=== PATIENT | female | born 1940 | race Caucasian/White ===

== ENCOUNTER 2016-12-24 15:08 | Observation (INO) ==
--- NOTE | 2016-12-24 15:36 | Emergency Department Note ---
Disposition Clinical Impression: Shortness of breath at rest Chest pain Qualifiers: Chest pain type: unspecified Qualified Code(s): R07.9 - Chest pain, unspecified Disposition: Admitted As Inpatient Condition: Fair Time of Disposition: 19:45 Chest Pain HPI - General Chief Complaint: ED Chest Pain Stated Complaint: Chest pain Time Seen by Provider: 12/24/16 15:10 Source: patient, EMS Limitations: no limitations Vital Signs Reviewed: Yes Nursing Notes Reviewed: Yes - History of Present Illness HPI Narrative: The patient is a 76-year-old female with a past medical history of hypertension , COPD, stroke, and NM who presents via EMS complaining of chest pain and shortness of breath. The patient states that the chest pain is on the left side and started approximately 2 hours ago while at rest and radiates to her back and both shoulders. Patient describes the pain as a 10 out of 10 constant sharp pain with associated right arm numbness. Patient states she took 3 nitros at home each 5 minutes apart with no chest pain relief. Patient admits the ride to the hospital may her chest pain worse and nothing makes it better. Patient states that her SOB started last night. She is on 2L of oxygen at home and oxygen did not improve her breathing. She states that the SOB occurs at rest and is worse with exertion. She denies any history of DVTs or Pulmonary embolism. Patient states that she just seen her primary care physician on Wednesday and was diagnosed with "fluid on her lungs." She admits headaches but denies any vision changes, fever, abdominal pain, changes in her bowel movement , changes in her urination, or any weaknesses. Severity scale (1-10): 10 - Related Data Home Medications Medication Instructions Recorded Confirmed ALPRAZolam [Xanax 1 MG Tablet] 1.5 mg PO BID 11/03/16 12/24/16 Alendronate Sodium [Fosamax] 10 mg PO DAILY 11/03/16 12/24/16 Aspirin Enteric Coated [Aspirin EC] 81 mg PO DAILY 11/03/16 12/24/16 Budesonide/Formoterol 160/4.5 2 puff IH DAILY 11/03/16 12/24/16 [Symbicort 160/4.5] Cholecalciferol (D-3) [Vitamin D] 1,000 unit PO DAILY 11/03/16 12/24/16 Cyanocobalamin (Vitamin B-12) 1,000 mcg PO DAILY 11/03/16 12/24/16 [Vitamin B12] Furosemide [Lasix] 20 mg PO BID 11/03/16 12/24/16 Losartan Potassium [Cozaar] 50 mg PO DAILY 11/03/16 12/24/16 Metoclopramide [Reglan] 10 mg PO DAILY 11/03/16 12/24/16 Multivitamin [Multi-Day Vitamins] 1 tab PO DAILY 11/03/16 12/24/16 Nitroglycerin [Nitrostat] 0.4 mg SL Q5M PRN 11/03/16 12/24/16 OxyCODONE/APAP 5/325 [Percocet 1 tab PO Q6HR PRN 11/03/16 12/24/16 5/325 MG] Oxygen 2 l NS AD 11/03/16 12/24/16 Pantoprazole Sodium [Protonix] 40 mg PO BID 11/03/16 12/24/16 Simvastatin [Zocor] 40 mg PO HS 11/03/16 12/24/16 glipiZIDE [Glucotrol] 5 mg PO QAM 11/03/16 12/24/16 Potassium Chloride [Klor-Con 10] 10 meq PO TID 12/24/16 12/24/16 Psyllium Husk [Daily Fiber] 1.04 gm PO DAILY 12/24/16 12/24/16 Sucralfate [Carafate] 1 gm PO QID 12/24/16 12/24/16 Allergies Allergy/AdvReac Type Severity Reaction Status Date / Time codeine AdvReac Drowsy Verified 11/03/16 07:50 duloxetine [From Cymbalta] AdvReac Nausea Verified 11/03/16 07:50 fish oil AdvReac Nausea Verified 11/03/16 07:50 fluconazole [From Diflucan] AdvReac Hives Verified 11/03/16 07:50 [place]-3 acid Ethyl Esters AdvReac Nausea Verified 11/03/16 07:50 [From [place]] omeprazole AdvReac Nausea Verified 11/03/16 07:50 All systems ED: reviewed and negative except as stated. Review of Systems: As Per HPI Constitutional: Denies: fever, chills, weakness Cardiovascular: Reports: chest pain, dyspnea on exertion. Denies: palpitations Respiratory: Reports: dyspnea. Denies: cough, wheezes Gastrointestinal: Denies: abdominal pain, nausea, vomiting Genitourinary: Denies: dysuria, frequency, hematuria Musculoskeletal: Denies: back pain, neck pain Neurological: Reports: headache, numbness (She admits numbness in her right arm) . Denies: weakness Chest Pain PMH - Past Medical History Medical history: Reports: CHF, COPD, CVA, hypertension, other Surgical history: Reports: hysterectomy, orthopedic, other Psychiatric history: Reports: no psych history - Social History Smoking Status: Former smoker Alcohol use: Reports: none Drug use: Reports: none Physical Exam - General Limitations: no limitations General appearance: alert, in no apparent distress - Eye Eye exam: Present: normal appearance, PERRL, EOMI - Chest Chest inspection: Present: normal inspection, symmetric chest wall rise - Respiratory Respiratory exam: Present: other (Crackles are heard in the left upper and lower lobe. Decreased breath sounds heard on the right side. ). Absent: respiratory distress - Cardiovascular Cardiovascular exam: Present: regular rate, normal rhythm, normal heart sounds. Absent: bradycardia, tachycardia - Abdominal Exam Abdominal exam: Present: soft, Non-Tender. Absent: tenderness, distention, guarding, rebound, rigidity - Extremities Exam Extremities exam: Present: other (Trace pitting edema present on bilateral lower extremities. ) - Back Exam Back exam: Present: normal inspection. Absent: tenderness, CVA tenderness (R), CVA tenderness (L), paraspinal tenderness, vertebral tenderness - Neurological Exam Neurological exam: Present: alert, oriented X3. Absent: motor sensory deficit ( Distal pulses +2/4 bilaterally. Muscle strength 5/5 in upper and lower extremities. Sensation is intact bilaterally. ) Course Vital Signs O2 Sat by Pulse Oximetry 4 12/24/16 15:09 Temperature 97.9 F 12/24/16 15:11 Pulse Rate 67 12/24/16 19:43 Respiratory Rate 18 12/24/16 19:43 Blood Pressure 165/86 12/24/16 19:43 O2 Sat by Pulse Oximetry 98 12/24/16 19:43 Oxygen Delivery Oxygen Delivery Room Air Chest Pain - MDM Narrative Medical decision making narrative: Patient's vitals are stable and she is afebrile. EKG showing normal sinus rhythm with a rate of 88 without acute ischemic change. Labs are pending. SOB appears pleuritic. Dimer is pending. 16:05 - Labs showed HgB at 11.4 which appears to be near her baseline. Creatinine is elevated at 1.51 and dimer is elevated at 560. CTA of chest will be ordered. 16:26- CXR showed right basilar atelectasis or scarring. No other acute cardiopulmonary finding. CTA was ordered. Patient has elevated Creatine so will hydrate patient with 1L of fluids prior to CTA. Patient is reevaluated and states no change in pain. Patient breathing is improved with 2L of oxygen. 18:10- CTA showed no pulmonary embolism, aortic aneurysm, or dissection.There are trace bilateral pleural effusions, with subpleural patchy airspace disease which may represent atelectasis, though bronchiolitis cannot be excluded. No pulmonary consolidation. Reevalulated the patient. She states she is still having chest pain. Will give patient 4mg of morphine and Aspirin. 18:43 - Patient is reevaluated. She has not received morphine yet. HEART score is 4. Plan to admit the patient. Patient states that she does not want to be admitted. 19:38- Patient is still continuing to have chest pain after 4 mg of Morphine is administered. Will order 4mg morphine for her pain. Spoke with Dr. Reynoso and discussed the patient. He agree to admit the patient for NM rule out. - Lab Data Result diagrams: 12/24/16 15:38 12/24/16 15:38 Lab Results 12/24/16 12/24/16 12/24/16 Range/Units 15:38 15:38 15:38 WBC 6.4 (4.3-11.1) K/mcL RBC 3.88 (3.82-4.97) M/mcL Hgb 11.4 L (11.5-15.4) g/dL Hct 34.9 L (35.3-44.9) % MCV 89.9 (83.0-100.0) fL MCH 29.4 (28.0-33.3) pg MCHC 32.7 (31.6-35.5) g/dL RDW 12.7 (11.5-14.5) % Plt Count 136 L (140-400) K/mcL MPV 11.6 (9.4-12.4) fL Immature Gran % 0.2 (0-4) % Seg Neutrophils % 59.7 % Lymphocytes % 29.9 % Monocytes % 7.9 % Eosinophils % 2.0 % Basophils % 0.3 % Neutrophils # 3.8 (1.6-8.9) K/mcL Lymphocytes # 1.9 (0.6-4.6) K/mcL Monocytes # 0.5 (0.0-1.3) K/mcL Eosinophils # 0.1 (0.0-0.6) K/mcL Basophils # 0.0 (0.0-0.2) K/mcL D-Dimer (0-500) ng/mLFEU Sodium 139 (136-145) mEq/L Potassium 3.9 (3.5-4.5) mEq/L Chloride 104 (98-109) mEq/L Carbon Dioxide 26 (19-29) mEq/L BUN 21 H (7-20) mg/dL Creatinine 1.51 H (0.57-1.11) mg/dL Est GFR ( Amer) 40 L (> 60) Est GFR (Non-Af Amer) 33 L (> 60) BUN/Creatinine Ratio 14 (6-26) Glucose 144 H (70-99) mg/dL Calculated Osmolality 294 (280-300) Calcium 9.4 (8.6-10.8) mg/dL Troponin I 0.00 (0-0.03) ng/mL 12/24/16 Range/Units 15:38 WBC (4.3-11.1) K/mcL RBC (3.82-4.97) M/mcL Hgb (11.5-15.4) g/dL Hct (35.3-44.9) % MCV (83.0-100.0) fL MCH (28.0-33.3) pg MCHC (31.6-35.5) g/dL RDW (11.5-14.5) % Plt Count (140-400) K/mcL MPV (9.4-12.4) fL Immature Gran % (0-4) % Seg Neutrophils % % Lymphocytes % % Monocytes % % Eosinophils % % Basophils % % Neutrophils # (1.6-8.9) K/mcL Lymphocytes # (0.6-4.6) K/mcL Monocytes # (0.0-1.3) K/mcL Eosinophils # (0.0-0.6) K/mcL Basophils # (0.0-0.2) K/mcL D-Dimer 560 H (0-500) ng/mLFEU Sodium (136-145) mEq/L Potassium (3.5-4.5) mEq/L Chloride (98-109) mEq/L Carbon Dioxide (19-29) mEq/L BUN (7-20) mg/dL Creatinine (0.57-1.11) mg/dL Est GFR ( Amer) (> 60) Est GFR (Non-Af Amer) (> 60) BUN/Creatinine Ratio (6-26) Glucose (70-99) mg/dL Calculated Osmolality (280-300) Calcium (8.6-10.8) mg/dL Troponin I (0-0.03) ng/mL - Radiology Data Chest X-Ray 12/24/16 15:10 IMPRESSION: Right basilar atelectasis or scarring. No other acute cardiopulmonary findings. D/ / Ania Shah MD / Ania Shah MD Interpreting Provider: Ania Shah MD - EKG Data EKG attestation: Yes I reviewed and interpreted this EKG. EKG results narrative: EKG showed no signs of ischemic changes. EKG shows normal: sinus rhythm Rate: normal Rhythm: NSR [place]/QRS: normal When compared to previous EKG there are: no significant changes Interpretation: no acute changes, normal EKG Heart Score - Score History: Slightly Suspicious EKG: Normal Age: Greater than 65 Risk Factors: Equal/Greater than 3 risk factor or history of atherosclerotic disease Troponin: Less than normal limit HEART Score Total: 4
--- NOTE | 2016-12-24 15:37 | Emergency Department Note ---
START Narrative - START START: I examined this patient and my medical decision-making was reviewed with the [employer]/PA/Advanced Practice Nurse/Resident Physician. I agree with the documented findings, disposition and treatment plan as described except to the extent set forth below. I did see the patient spoke with her and her daughter and she does have chest pain and is exertional and she does have a pleuritic aspect but no radiation. Symptoms have been present for approximately one week. Evaluation is in progress. I did review her EKG showing normal sinus rhythm with a rate of 88 without acute ischemic change. I did see the patient immediately upon arrival and also spoke with the paramedics. [id number]
[2016-12-24 15:49] LABS: Basophils % 0.3 %; Eosinophils # 0.1 K/mcL (0.0-0.6); Hematocrit 34.9 % (35.3-44.9); Hemoglobin 11.4 g/dL (11.5-15.4); Immature Granulocytes % 0.2 % (0-4); Lymphocytes # 1.9 K/mcL (0.6-4.6); Lymphocytes % 29.9 %; Mean Corpuscular HGB Conc 32.7 g/dL (31.6-35.5); Mean Corpuscular Hemoglobin 29.4 pg (28.0-33.3); Mean Corpuscular Volume 89.9 fL (83.0-100.0); Mean Platelet Volume 11.6 fL (9.4-12.4); Monocytes # 0.5 K/mcL (0.0-1.3); Monocytes % 7.9 %; Neutrophils # 3.8 K/mcL (1.6-8.9); Platelet Count 136 K/mcL (140-400); Red Blood Count 3.88 M/mcL (3.82-4.97); Red Cell Distribution Width 12.7 % (11.5-14.5); Segmented Neutrophils % 59.7 %
[2016-12-24 15:57] LABS: Calcium 9.4 mg/dL (8.6-10.8); Potassium 3.9 mEq/L (3.5-4.5)
[2016-12-24] MEDS ORDERED: 0.9 % Sodium Chloride 1,000 ML IVC ONE (16:25)
[2016-12-24] MEDS ORDERED: Aspirin 325 MG TABLET PO ONE (18:28)
[2016-12-24] MEDS ORDERED: *HR* Morphine 2 MG/ML SYRINGE IVP ONE ×2 (18:28→19:38)
[2016-12-24] MEDS ORDERED: Naloxone 0.4 MG/ML INJ IVP PRN (20:47)
[2016-12-24] MEDS ORDERED: Acetaminophen 325 MG TABLET PO PRN (20:47)
[2016-12-24] MEDS ORDERED: Ondansetron 4 MG/2 ML VIAL IVP PRN (20:47)
[2016-12-24] MEDS ORDERED: Nitroglycerin 0.4 MG TAB.SUBL SL PRN (20:49)
[2016-12-24] MEDS ORDERED: *HR* OxyCODONE/APAP 5/325 TABLET PO PRN (20:49)
[2016-12-24] MEDS ORDERED: Furosemide 20 MG TABLET PO SCH (21:00)
[2016-12-24] MEDS: Sucralfate 1 GM TABLET PO SCH (22:17)
[2016-12-24] MEDS: ALPRAZolam 1 MG TABLET PO SCH (22:18)
[2016-12-24] MEDS ORDERED: *HR* Dextrose 50 % in Water (Syg) 50 ML SYRINGE IVP PRN (23:04)
[2016-12-24] MEDS ORDERED: D5% in Water 1,000 ML IVC PRN (23:04)
[2016-12-24] MEDS ORDERED: Dextrose Gel 15 GM PO PRN ×2 (23:04)
--- NOTE | 2016-12-24 23:12 | Internal Med History&Physical ---
<Skylar Chaney - Last Filed: 12/24/16 23:25> Date of Encounter: 12/24/16 Time of Encounter: 23:08 Assessment and Plan (1) Chest pain Current visit: Yes Status: Acute 1 patient had a sudden onset of chest pain was unrelieved with 3 nitroglycerin first troponin was 0 we will continue to trend troponins 2 continuous cardiac monitoring 3 patient's last stress test was 3 years ago as well as a cardiac catheterization which had no blockage according to the patient-in. Nothing by mouth After midnight-cardiac stress test in a.m. 4 we will continue with aspirin and statin we will hold ARB for now 5 nitroglycerin and morphine as needed for chest pain 6 consult cardiology as needed Qualifiers: Chest pain type: unspecified Qualified Code(s): R07.9 - Chest pain, unspecified (2) ELIU (acute kidney injury) Current visit: Yes Status: Acute Patient's creatinine is 1.5 on last month's of 1.3 and appears it has been less than 1.00 patient states she had a recent increase in her Lasix. We will hold this for now as well as ARB. We will give gentle IV hydration overnight recheck creatinine in a.m. 2 avoid nephrotoxins 3 monitor intake and output daily weights (3) Hypertension Current visit: Yes Status: Acute Patient has a bump in creatinine we will hold ARB and lasix we will resume once back to baseline low Na diet Qualifiers: Hypertension type: essential hypertension Qualified Code(s): I10 - Essential (primary) hypertension (4) COPD (chronic obstructive pulmonary disease) Current visit: Yes Status: Acute Oxygen titrated maintain SPO2 greater than 92% Bronchodilators as needed Qualifiers: COPD type: unspecified COPD Qualified Code(s): J44.9 - Chronic obstructive pulmonary disease, unspecified (5) DVT prophylaxis Current visit: Yes Status: Acute Heparin subcutaneous Internal Medicine - H&P: HPI Chief complaint: cp Admitted From: Emergency Dept Plans for Post Hospital Care: Home History of present illness: Ms. Gutiérrez is a 76 year old female past history COPD hypertension CVA with no deficits SD. According to patient she began to experience chest pain shortness of breath chest pain is midsternal radiating to her left arm. Describes the pain as sharp 10 out of 10 constant. She did take 3 nitros 5 minutes apart without any relief. She had associated symptoms of shortness of breath. She did see her primary care physician on Wednesday and was informed that she had fluid on the lungs, Lasix was increased. She did have a cardiac catheter approximately 3 years ago with no stent placement as well as a stress test. She denies any palpitations or syncopal episodes. She is brought to the ER for evaluation chest x-ray was completed with no acute process lab work was unremarkable except for slight elevation in her creatinine CTA was completed which was negative for any PE. She has been admitted for further workup evaluation. Presently patient denies any chest pain or shortness of breath. She is hemodynamically stable this time. I did review this case with Dr. Reynoso who agrees with plan. Past Med Surg Social Fam HX - Past Medical History Medical history: CHF, COPD, CVA, hypertension, other Psychiatric history: no psych history - Past Surgical History Surgical History: hysterectomy, orthopedic, other - Social History Smoking Status: Former smoker Smokeless Tobacco Status: No Alcohol use: none Drug use: none - Family History Mother Hx Family Cardiac Disorders: Yes Internal Medicine - H&P: Meds ALPRAZolam [Xanax 1 MG Tablet] 1.5 mg PO BID 11/03/16 [History] Alendronate Sodium [Fosamax] 10 mg PO DAILY 11/03/16 [History] Aspirin Enteric Coated [Aspirin EC] 81 mg PO DAILY 11/03/16 [History] Budesonide/Formoterol 160/4.5 [Symbicort 160/4.5] 2 puff IH DAILY 11/03/16 [ History] Cholecalciferol (D-3) [Vitamin D] 1,000 unit PO DAILY 11/03/16 [History] Cyanocobalamin (Vitamin B-12) [Vitamin B12] 1,000 mcg PO DAILY 11/03/16 [History ] Furosemide [Lasix] 20 mg PO BID 11/03/16 [History] Losartan Potassium [Cozaar] 50 mg PO DAILY 11/03/16 [History] Metoclopramide [Reglan] 10 mg PO DAILY 11/03/16 [History] Multivitamin [Multi-Day Vitamins] 1 tab PO DAILY 11/03/16 [History] Nitroglycerin [Nitrostat] 0.4 mg SL Q5M PRN 11/03/16 [History] OxyCODONE/APAP 5/325 [Percocet 5/325 MG] 1 tab PO Q6HR PRN 11/03/16 [History] Oxygen 2 l NS AD 11/03/16 [History] Pantoprazole Sodium [Protonix] 40 mg PO BID 11/03/16 [History] Simvastatin [Zocor] 40 mg PO HS 11/03/16 [History] glipiZIDE [Glucotrol] 5 mg PO QAM 11/03/16 [History] Potassium Chloride [Klor-Con 10] 10 meq PO TID 12/24/16 [History] Psyllium Husk [Daily Fiber] 1.04 gm PO DAILY 12/24/16 [History] Sucralfate [Carafate] 1 gm PO QID 12/24/16 [History] 3 Allergy/AdvReac Type Severity Reaction Status Date / Time codeine AdvReac Drowsy Verified 11/03/16 07:50 duloxetine [From Cymbalta] AdvReac Nausea Verified 11/03/16 07:50 fish oil AdvReac Nausea Verified 11/03/16 07:50 fluconazole [From Diflucan] AdvReac Hives Verified 11/03/16 07:50 [place]-3 acid Ethyl Esters AdvReac Nausea Verified 11/03/16 07:50 [From [place]] omeprazole AdvReac Nausea Verified 11/03/16 07:50 All Systems PM: A 10-system review of systems was performed and is negative for pertinent findings except as documented above in the HPI. - Constitutional Constitutional: no chills, no fever(s), no night sweats - EENT Eyes: no change in vision, no discharge, no pain, no photophobia Nose, mouth and throat: no dysphagia, no nasal discharge, no neck pain, no sore throat - Cardiovascular Cardiovascular ROS IM: chest pain, dyspnea on exertion, no diaphoresis, no dyspnea, no lightheadedness, no palpitations, no syncope - Respiratory Respiratory: no cough, no dyspnea, no wheezing, no excessive phlegm production - Gastrointestinal Gastrointestinal: no abdominal pain, no diarrhea, no hematemesis, no hematochezia, no melena, no nausea, no vomiting - Genitourinary Genitourinary: no change in urinary stream, no dysuria, no flank pain, no hematuria - Musculoskeletal Musculoskeletal ROS IM: no numbness, no tingling - Integumentary Integumentary IM: no rash, no unusual bruising - Neurological Neurological ROS: no confusion, no convulsions, no focal weakness, no numbness, no tingling, no tremor(s) - Hematologic/Lymphatic Hematologic/Lymphatic: no easy bruising - Constitutional Vitals: Temp Pulse Resp BP Pulse Ox 97.7 F 64 18 150/86 95 12/24/16 20:55 12/24/16 20:55 12/24/16 20:57 12/24/16 20:57 12/24/16 20:55 General appearance: Present: A&O X 3, answers questions appropriately - Head Head exam: Present: atraumatic, normocephalic - Eye Eye exam: Present: PERRL, conjuntiva pink, sclera anicteric Pupils: Present: PERRL - Neck Neck exam general surgery: Present: supple, trachea midline. Absent: lymphadenopathy - Respiratory Respiratory exam: Present: CTAB. Absent: accessory muscle use, rales, rhonchi, wheezes - Cardiovascular Cardiovascular exam: Present: RRR, +S1, +S2. Absent: diastolic murmur, gallop, rubs, systolic murmur - GI/Abdominal GI/Abdominal exam: Present: normal bowel sounds, soft, no peritoneal signs. Absent: distended, tenderness - Extremities Exam Extremities exam: Present: warm, radial pulses palpable and symmetrical. Absent : calf tenderness, cyanotic, pedal edema - Neurological Exam Neurological exam: Present: CN II-XII intact, oriented X3, no focal deficits. Absent: pronater drift, facial droop, speech deficit - Skin Skin exam: Present: dry, intact Internal Med - H&P Results - Labs CBC & Chem 7: 12/24/16 15:38 12/24/16 15:38 Labs: Cardiac Enzymes 12/24/16 Range/Units 22:02 Troponin I 0.00 (0-0.03) ng/mL - EKG Data EKG shows normal: sinus rhythm Rate: normal - Diagnostic Studies Other Images Additional comments: Chest X-Ray 12/24/16 15:10 IMPRESSION: Right basilar atelectasis or scarring. No other acute cardiopulmonary findings. D/ / Ania Shah MD / Ania Shah MD Interpreting Provider: Ania Shah MD Chest CTA 12/24/16 16:07 IMPRESSION: No pulmonary embolism, aortic aneurysm, or dissection. There are trace bilateral pleural effusions, with subpleural patchy airspace disease which may represent atelectasis, though bronchiolitis cannot be excluded. No pulmonary consolidation. D/ / Jerardo Morgan MD / Jerardo Morgan MD Interpreting Provider: Jerardo Morgan MD <Obdulio Reynoso - Last Filed: 12/25/16 04:17> Date of Encounter: 12/24/16 Internal Medicine - H&P: HPI History of present illness: Ms. Gutiérrez is a 76 year old female All Systems PM: A 10-system review of systems was performed and is negative for pertinent findings except as documented above in the HPI. - Constitutional Vitals: Temp Pulse Resp BP Pulse Ox 97.6 F 69 18 104/64 91 12/25/16 03:44 12/25/16 03:44 12/25/16 03:44 12/25/16 03:44 12/25/16 03:44 Internal Med - H&P Results - Labs CBC & Chem 7: 12/24/16 15:38 12/24/16 15:38 Labs: Cardiac Enzymes 12/24/16 Range/Units 22:02 Troponin I 0.00 (0-0.03) ng/mL - Attending Attestation I personally interviewed and examined this patient and my medical decision- making was reviewed with the Advanced Practice Nurse. I agree with the documented findings, disposition and treatment plan as described except to the extent set forth below. Regarding ELIU her baseline creatinine is around 0.87, now comes in with 1.51 in the setting of aggressive diuretics as outpatient. Obdulio Reynoso MD, MPH Hospitalist
[2016-12-24] MEDS ORDERED: 0.9 % Sodium Chloride 1,000 ML IVC SCH (23:30)
[2016-12-25 04:28] LABS: Basophils % 0.3 %; Eosinophils # 0.1 K/mcL (0.0-0.6); Eosinophils % 2.3 %; Hematocrit 34.7 % (35.3-44.9); Hemoglobin 11.3 g/dL (11.5-15.4); Immature Granulocytes % 0.3 % (0-4); Lymphocytes # 1.6 K/mcL (0.6-4.6); Lymphocytes % 28.2 %; Mean Corpuscular HGB Conc 32.6 g/dL (31.6-35.5); Mean Corpuscular Hemoglobin 30.1 pg (28.0-33.3); Mean Corpuscular Volume 92.3 fL (83.0-100.0); Mean Platelet Volume 11.7 fL (9.4-12.4); Monocytes # 0.5 K/mcL (0.0-1.3); Monocytes % 8.4 %; Neutrophils # 3.5 K/mcL (1.6-8.9); Platelet Count 129 K/mcL (140-400); Red Blood Count 3.76 M/mcL (3.82-4.97); Red Cell Distribution Width 12.7 % (11.5-14.5); Segmented Neutrophils % 60.5 %
[2016-12-25 04:46] LABS: Calcium 8.9 mg/dL (8.6-10.8); Chol/HDL Ratio 4.1 (0-4.9); Magnesium 2.1 mg/dL (1.6-2.6)
[2016-12-25 04:59] LABS: Potassium 3.9 mEq/L (3.5-4.5)
[2016-12-25] MEDS: *HR* Heparin 5,000 UNIT/ML VIAL SQ SCH ×2 (05:23→18:29)
[2016-12-25] MEDS ORDERED: Regadenoson 0.4 MG/5 ML SYRINGE IVP ONE (06:09)
[2016-12-25] MEDS: Insulin LISPRO 300 UNITS/3 ML VIAL SQ SCH ×3 (08:15→17:33)
[2016-12-25] MEDS: PSYLLIUM HUSK PO SCH (09:15)
[2016-12-25] MEDS: ALPRAZolam 1 MG TABLET PO SCH ×2 (09:28→20:58)
[2016-12-25] MEDS: Multivit/Ca/Min/Fe/FA 1 TAB TABLET PO SCH (09:28)
[2016-12-25] MEDS: Cholecalciferol (D-3) 1,000 UNIT TABLET PO SCH (09:28)
[2016-12-25] MEDS: *HR* Morphine 2 MG/ML SYRINGE IVP PRN ×2 (09:28→16:24)
[2016-12-25] MEDS: Cyanocobalamin (B-12) 1,000 MCG TABLET PO SCH (09:29)
[2016-12-25] MEDS: Aspirin Enteric Coated 81 MG Tablet PO SCH (09:29)
[2016-12-25] MEDS: Sucralfate 1 GM TABLET PO SCH ×4 (09:29→20:57)
[2016-12-25] MEDS: Budesonide/Formoterol 160/4.5 MDI IH SCH ×2 (10:46→19:53)
--- NOTE | 2016-12-25 15:32 | Electrocardiograph Report ---
[address] [place], [place] [address] Test Date: 2016-12-24 Pat Name: Munira Gutiérrez Department: 103 Room: 3B33 Gender: F [employer] Pork: TAMIKA : 1940 Requested By: Juan Pablo Atkinson Order Number: [id number] Reading MD: Hugh Lopez MD Measurements Intervals [place] Rate: 88 P: 21 [place]: 128 QRS: -4 QRSD: 78 T: 15 QT: 340 QTc: 385 Interpretive Statements SINUS RHYTHM Electronically Signed On 12-25-2016 15:30:58 EDT by Hugh Lopez MD
--- NOTE | 2016-12-25 18:28 | Internal Med Progress Note ---
Date of Encounter: 12/25/16 Time of Encounter: 10:15 - Assessment and plan (1) Chest pain Current Visit: Yes Status: Acute Assessment and plan: Patient reports sudden onset sharp midsternal and left chest pain with radiation to back and bilateral shoulder blades. Patient reports he admitting physician that radiated to her left arm. She states that the pain was constant and that she took 3 nitroglycerin, 5 minutes apart without any relief. She reported associated symptoms of shortness of breath and nausea. She had nausea and vomiting during the stress test. She also reports increasing shortness of breath and diaphoresis. She was at her primary care provider office 3 days ago and was informed that she had fluid on her lungs, her Lasix was increased. History of LHC approximately 3 years ago with no intervention, as well as a stress test at that time. Patient denies any palpitations or syncopal episodes. Chest x-ray was negative, troponins were negative. CTA chest was completed negative for any PE. Patient had a stress test today was negative for ischemia or infarct. There is an apical thinning artifact noticed on stress and rest images. Exercise ECG and perfusion imaging were negative. Patient had no chest pain during the stress test. Gated EF is greater than 70% without LV dilation. In there is no evidence of T I D. EKG on arrival was normal sinus rhythm with a rate of 88, [place] interval 128, QRS 78, QTC 385. The pain is not reproducible with palpation, inspiration, or movement. Her lungs are clear and diminished throughout. We will continue to monitor telemetry, labs, and patient condition. Morphine, aspirin, nitroglycerin for chest pain. Monitor vital signs Qualifiers: Chest pain type: unspecified Qualified Code(s): R07.9 - Chest pain, unspecified (2) Obesity (BMI 30-39.9) Current Visit: Yes Status: Chronic Assessment and plan: Chronic. Lifestyle changes. (3) Congestive heart failure (CHF) Current Visit: Yes Status: Acute Assessment and plan: Patient does not have an echocardiogram at this facility, order placed for echo in the morning. Patient reports recently that she was told that she had water on her lungs and her Lasix was increased at her primary care office earlier this week. Continue telemetry Continue lasix 20mg IV bid Strict I and O Daily weights Low sodium/cardiac diet 1.5 L fluid restriction Qualifiers: Congestive heart failure type: unspecified congestive heart failure type Congestive heart failure chronicity: unspecified congestive heart failure chronicity Qualified Code(s): I50.9 - Heart failure, unspecified (4) Shortness of breath at rest Current Visit: Yes Status: Acute (5) Hypertension Current Visit: Yes Status: Acute Assessment and plan: Well controlled in hospital. Continue home medications. Continue to monitor VS as ordered. Qualifiers: Hypertension type: essential hypertension Qualified Code(s): I10 - Essential (primary) hypertension (6) COPD (chronic obstructive pulmonary disease) Current Visit: Yes Status: Acute Assessment and plan: No acute exacerbation at this time. Lungs are clear and diminshed througout. Maintain 02 to sats > 92% Duonebs scheduled Continue home inhalers. Qualifiers: COPD type: unspecified COPD Qualified Code(s): J44.9 - Chronic obstructive pulmonary disease, unspecified (7) DVT prophylaxis Current Visit: Yes Status: Acute (8) ELIU (acute kidney injury) Current Visit: Yes Status: Acute Assessment and plan: Pt states that she is unaware of renal disease or ELIU prior to today. Prior SrCr and GFR in 2014 were normal. Will start gentle IVF hydration overnight, being mindful of CHF. Avoid nephrotoxins, Lasix 20mg IV bid. Pt is not on an KJAAL. - Time Spent With Patient less than 15 minutes - Subjective Interval history: Patient was seen and assessed at 10:15 AM. She reports onset of chest pain while sitting yesterday afternoon, she is unsure of time. She reports it is midsternal and left chest with radiation to back and bilateral shoulder blades. She describes it as sharp with associated shortness of breath, nausea vomiting during the stress test, positive diaphoresis. The red with no relief. Currently at time of exam, chest pain was 7/10. Patient denies knowledge of any renal disease, she does report history of congestive heart failure. She denies headache, nausea vomiting, abdominal pain, weakness, shortness of breath or dyspnea on exertion currently. - Constitutional Vitals: Temp Pulse Resp BP Pulse Ox 98.2 F 74 16 117/70 95 12/25/16 15:22 12/25/16 15:22 12/25/16 15:22 12/25/16 15:22 12/25/16 15:22 General appearance: Present: cooperative, A&O X 3, no acute distress, obese, answers questions appropriately - Head Head exam: Present: atraumatic, normal inspection, normocephalic - Eye Eye exam: Present: normal appearance, conjuntiva pink, sclera anicteric - ENT ENT exam: Present: mucous membranes moist, normal exam - Neck Neck exam general surgery: Present: supple, trachea midline. Absent: lymphadenopathy, tenderness - Respiratory Respiratory exam: Present: CTAB. Absent: accessory muscle use, chest wall tenderness, decreased breath sounds, rales, rhonchi, wheezes - Cardiovascular Cardiovascular exam: Present: RRR, +S1, +S2. Absent: diastolic murmur, gallop, rubs, systolic murmur - GI/Abdominal GI/Abdominal exam: Present: normal bowel sounds, soft, no peritoneal signs. Absent: distended, hepatomegaly, tenderness - Extremities Exam Extremities exam: Present: normal inspection, warm, radial pulses palpable and symmetrical. Absent: calf tenderness, cyanotic, pedal edema, tenderness - Neurological Exam Neurological exam: Present: alert, oriented X3, no focal deficits. Absent: facial droop, speech deficit - Psychiatric Psychiatric exam: Present: flat affect - Skin Skin exam: Present: dry, intact, normal color, warm. Absent: rash Internal Medicine: Result - Labs CBC & Chem 7: 12/25/16 03:31 12/25/16 03:31 Labs: Short CBC 12/25/16 Range/Units 03:31 WBC 5.7 (4.3-11.1) K/mcL Hgb 11.3 L (11.5-15.4) g/dL Hct 34.7 L (35.3-44.9) % Plt Count 129 L (140-400) K/mcL Neutrophils # 3.5 (1.6-8.9) K/mcL BMP 12/25/16 03:31 Sodium 141 Potassium 3.9 Chloride 107 Carbon Dioxide 27 BUN 22 H Creatinine 1.57 H Glucose 194 H Calcium 8.9 Cardiac Enzymes 12/24/16 12/25/16 12/25/16 Range/Units 22:02 03:31 09:24 Troponin I 0.00 0.00 0.00 (0-0.03) ng/mL - ABG Interpretation ABG results: PT/INR, D-dimer D-Dimer 560 ng/mLFEU (0-500) H 12/24/16 15:38 Consult Discharge Plan - Plan Instructions: Chest Pain (DC)
[2016-12-25] MEDS ORDERED: 0.9 % Sodium Chloride 1,000 ML IVC SCH (18:45)
[2016-12-25] MEDS: Ipratropium/Albuterol Neb 3 ML IH SCH ×2 (19:52→23:10)
[2016-12-25] MEDS ORDERED: Insulin LISPRO 300 UNITS/3 ML VIAL SQ SCH (21:00)
[2016-12-25] MEDS: Furosemide 20 MG/2 ML VIAL IVP SCH (21:00)
[2016-12-26] MEDS: Ipratropium/Albuterol Neb 3 ML IH SCH ×5 (03:57→19:51)
[2016-12-26 05:05] LABS: Basophils % 0.4 %; Eosinophils # 0.1 K/mcL (0.0-0.6); Eosinophils % 2.6 %; Immature Granulocytes % 0.2 % (0-4); Lymphocytes # 1.8 K/mcL (0.6-4.6); Lymphocytes % 33.6 %; Mean Corpuscular HGB Conc 32.3 g/dL (31.6-35.5); Mean Corpuscular Hemoglobin 30.1 pg (28.0-33.3); Mean Corpuscular Volume 93.4 fL (83.0-100.0); Monocytes # 0.5 K/mcL (0.0-1.3); Monocytes % 9.1 %; Neutrophils # 2.9 K/mcL (1.6-8.9); Platelet Count 101 K/mcL (140-400); Red Blood Count 3.32 M/mcL (3.82-4.97); Red Cell Distribution Width 12.5 % (11.5-14.5); Segmented Neutrophils % 54.1 %
[2016-12-26 05:15] LABS: BUN/Creatinine Ratio 18 (6-26); Blood Urea Nitrogen 19 mg/dL (7-20); Calcium 8.4 mg/dL (8.6-10.8); Carbon Dioxide 26 mEq/L (19-29); Chloride 109 mEq/L (98-109); Glucose 136 mg/dL (70-99); Osmolality,Calculated 294 (280-300); Potassium 3.8 mEq/L (3.5-4.5); Sodium 140 mEq/L (136-145); eGFR For African Americans > 60 (> 60); eGFR For Non-African Americans 50 (> 60)
[2016-12-26] MEDS: *HR* Heparin 5,000 UNIT/ML VIAL SQ SCH (06:32)
[2016-12-26] MEDS: Budesonide/Formoterol 160/4.5 MDI IH SCH ×2 (07:43→19:52)
[2016-12-26] MEDS: Insulin LISPRO 300 UNITS/3 ML VIAL SQ SCH ×3 (07:45→17:36)
[2016-12-26] MEDS: ALPRAZolam 1 MG TABLET PO SCH (09:31)
[2016-12-26] MEDS: Cyanocobalamin (B-12) 1,000 MCG TABLET PO SCH (09:31)
[2016-12-26] MEDS: Sucralfate 1 GM TABLET PO SCH ×3 (09:31→17:35)
[2016-12-26] MEDS: Cholecalciferol (D-3) 1,000 UNIT TABLET PO SCH (09:31)
[2016-12-26] MEDS: Multivit/Ca/Min/Fe/FA 1 TAB TABLET PO SCH (09:31)
[2016-12-26] MEDS: Furosemide 20 MG/2 ML VIAL IVP SCH (09:32)
[2016-12-26] MEDS: Aspirin Enteric Coated 81 MG Tablet PO SCH (09:32)
[2016-12-26] MEDS: PSYLLIUM HUSK PO SCH (09:32)
[2016-12-26] MEDS ORDERED: *HR* OxyCODONE/APAP 5/325 TABLET PO PRN (12:59)
[2016-12-26 15:01] VITALS: BP 125/73
--- NOTE | 2016-12-26 19:11 | Discharge Summary ---
Date of Encounter: 12/26/16 Time of Encounter: 08:10 - Discharge Diagnosis (1) Chest pain Priority: Primary Status: Acute Comments: Patient reports sudden onset sharp midsternal and left chest pain with radiation to back and bilateral shoulder blades. Patient reports to the admitting physician that radiated to her left arm. She states that the pain was constant and that she took 3 nitroglycerin, 5 minutes apart without any relief. She reported associated symptoms of shortness of breath and nausea. She had nausea and vomiting during the stress test. She also reports increasing shortness of breath and diaphoresis. She was at her primary care provider office 3 days ago and was informed that she had fluid on her lungs, her Lasix was increased. History of LHC approximately 3 years ago with no intervention, as well as a stress test at that time. Patient denies any palpitations or syncopal episodes. Chest x-ray was negative, troponins were negative. CTA chest was completed negative for any PE. Patient had a stress test today was negative for ischemia or infarct. There is an apical thinning artifact noticed on stress and rest images. Exercise ECG and perfusion imaging were negative. Patient had no chest pain during the stress test. Gated EF is greater than 70% without LV dilation. In there is no evidence of T I D. EKG on arrival was normal sinus rhythm with a rate of 88, [place] interval 128, QRS 78, QTC 385. Echocardiogram shows LVEF of 60-65% with normal systolic function and no significant valvular dysfunction. There is normal wall motion all segments. The pain is not reproducible with palpation, inspiration, or movement. Her lungs are clear and diminished throughout. Patient denies chest pain today. She denies nausea, vomiting, diaphoresis, chest pressure, shortness of breath or dyspnea. Chest x-ray was suggestive of bronchiolitis. Patient denies any cough fever or chills. At this time there is unclear etiology of source of chest pain, could be anxiety , or musculoskeletal chest pain. Qualifiers: Chest pain type: unspecified Qualified Code(s): R07.9 - Chest pain, unspecified (2) Obesity (BMI 30-39.9) Priority: Secondary Status: Chronic Comments: Chronic. Lifestyle changes. (3) Congestive heart failure (CHF) Priority: Secondary Status: Acute Comments: Patient with echocardiogram completed today that shows normal systolic function , no valvular dysfunction, EF of 60-65%. All wall segments showed normal motion. Patient states that she was told at primary care provider that she had water on her lungs. There is no indication the patient is in congestive heart failure at this time. Chest x-ray does not show any infiltrate or effusions. The patient does not have excessive peripheral edema and appears to be euvolemic at this time. Her lungs are clear and diminished throughout with no wheezing, rales, rhonchi, stridor or respiratory distress. Patient takes Lasix at home, continue home dose on discharge. Qualifiers: Congestive heart failure type: unspecified congestive heart failure type Congestive heart failure chronicity: unspecified congestive heart failure chronicity Qualified Code(s): I50.9 - Heart failure, unspecified (4) Shortness of breath at rest Priority: Secondary Status: Acute Comments: Plan as above. (5) Hypertension Priority: Secondary Status: Acute Comments: Patient has been normotensive today. Continue home medications. Continue to monitor vital signs at home and discuss with primary care. Qualifiers: Hypertension type: essential hypertension Qualified Code(s): I10 - Essential (primary) hypertension (6) COPD (chronic obstructive pulmonary disease) Priority: Secondary Status: Acute Comments: No acute exacerbation at this time. Lungs are clear and diminished throughout. Patient does not have home oxygen. Continue home medications at home inhalers. Qualifiers: COPD type: unspecified COPD Qualified Code(s): J44.9 - Chronic obstructive pulmonary disease, unspecified (7) DVT prophylaxis Priority: Secondary Status: Acute (8) ELIU (acute kidney injury) Priority: Secondary Status: Acute Comments: Patient appears to have possibly been dehydrated on admission. Renal function has returned to normal. Serum creatinine is 1.07 and GFR is greater than 60. Patient should follow up with primary care for continued monitoring. - Discharge Medications Home Medications: ALPRAZolam [Xanax 1 MG Tablet] 1.5 mg PO BID 11/03/16 [History] Alendronate Sodium [Fosamax] 10 mg PO DAILY 11/03/16 [History] Aspirin Enteric Coated [Aspirin EC] 81 mg PO DAILY 11/03/16 [History] Budesonide/Formoterol 160/4.5 [Symbicort 160/4.5] 2 puff IH DAILY 11/03/16 [ History] Cholecalciferol (D-3) [Vitamin D] 1,000 unit PO DAILY 11/03/16 [History] Cyanocobalamin (Vitamin B-12) [Vitamin B12] 1,000 mcg PO DAILY 11/03/16 [History ] Furosemide [Lasix] 20 mg PO BID 11/03/16 [History] Losartan Potassium [Cozaar] 50 mg PO DAILY 11/03/16 [History] Metoclopramide [Reglan] 10 mg PO DAILY 11/03/16 [History] Multivitamin [Multi-Day Vitamins] 1 tab PO DAILY 11/03/16 [History] Nitroglycerin [Nitrostat] 0.4 mg SL Q5M PRN 11/03/16 [History] OxyCODONE/APAP 5/325 [Percocet 5/325 MG] 1 tab PO Q6HR PRN 11/03/16 [History] Oxygen 2 l NS AD 11/03/16 [History] Pantoprazole Sodium [Protonix] 40 mg PO BID 11/03/16 [History] Simvastatin [Zocor] 40 mg PO HS 11/03/16 [History] glipiZIDE [Glucotrol] 5 mg PO QAM 11/03/16 [History] Potassium Chloride [Klor-Con 10] 10 meq PO TID 12/24/16 [History] Psyllium Husk [Daily Fiber] 1.04 gm PO DAILY 12/24/16 [History] Sucralfate [Carafate] 1 gm PO QID 12/24/16 [History] Allergies/Adverse Reactions: 3 Allergy/AdvReac Type Severity Reaction Status Date / Time codeine AdvReac Drowsy Verified 11/03/16 07:50 duloxetine [From Cymbalta] AdvReac Nausea Verified 11/03/16 07:50 fish oil AdvReac Nausea Verified 11/03/16 07:50 fluconazole [From Diflucan] AdvReac Hives Verified 11/03/16 07:50 [place]-3 acid Ethyl Esters AdvReac Nausea Verified 11/03/16 07:50 [From [place]] omeprazole AdvReac Nausea Verified 11/03/16 07:50 Procedures/tests Complete & Pending: Procedures Performed prior 72 hours Category Date Time Status NM odessa perf SPECT multi [NM] Routine Exams 12/24/16 23:01 Taken EV echocardiogram Routine Y 12/25/16 18:36 Completed SP pharm nuclear stress Routine Y 12/24/16 23:01 Completed Date of admission: 12/24/16 20:04 Primary care physician: Yas Raya CNP Consults: 12/24/16 22:55 Consult to [employer] [CONS] Routine Reason for SW Consult: for Home health set up. Discharging clinician: Myriam Cullen Anticipated date of discharge: 12/26/16 - Patient Status Disposition: Home, Self-Care Condition: Good Functional capacity at discharge: uses cane/walker Overall status at discharge: patient is back to baseline - Discharge Instructions Instructions: Chest Pain (DC) Follow Up With: Yas Raya CNP [Primary Care Provider] - Additional Instructions: Follow-up there. Care provider in the next 7-10 days for follow-up visit. Continue her normal home medications. Resume your normal activities as tolerated. Return to the emergency department as needed for any problems or concerns, or if symptoms return or worsen. - Diet and Activity Activity: increase activity as tolerated Diet: diabetic diet Interval History: See assessment and plan for hospital course. Hospital course: Ms. Gutiérrez is a 76 year old female - Time Spent with Patient Total time spent providing and/or coordinating discharge services: - Constitutional Vitals: Temp Pulse Resp BP Pulse Ox 98.2 F 83 16 125/73 91 12/26/16 15:00 12/26/16 15:00 12/26/16 15:00 12/26/16 15:00 12/26/16 15:00 General appearance: Present: cooperative, A&O X 3, pleasant, no acute distress, obese, answers questions appropriately - Head Head exam: Present: atraumatic, normal inspection, normocephalic - Eye Eye exam: Present: normal appearance, conjuntiva pink, sclera anicteric - Neck Neck exam general surgery: Present: normal inspection, supple, trachea midline. Absent: lymphadenopathy, tenderness - Respiratory Respiratory exam: Present: CTAB. Absent: accessory muscle use, rales, respiratory distress, rhonchi, wheezes - Cardiovascular Cardiovascular exam: Present: RRR, +S1, +S2. Absent: diastolic murmur, gallop, rubs, systolic murmur - GI/Abdominal GI/Abdominal exam: Present: normal bowel sounds, soft, no peritoneal signs. Absent: distended, hepatomegaly, tenderness - Extremities Exam Extremities exam: Present: normal capillary refill, normal inspection, pedal edema, warm, radial pulses palpable and symmetrical. Absent: calf tenderness, cyanotic - Neurological Exam Neurological exam: Present: alert, oriented X3, no focal deficits, pronater drift. Absent: facial droop, speech deficit - Skin Skin exam: Present: dry, intact, normal color, warm. Absent: rash
== END 2016-12-26 19:58 | disposition home or self-care (01) ==
LOC: 3BNU 15:08 → EMEROO 15:08 → 3BNU 20:58
PROVIDERS: ADMIT Internal Medicine; ATTEND Registered Nurse

== ENCOUNTER 2017-06-08 10:50 | Inpatient (IN) ==
--- NOTE | 2017-06-08 10:59 | Emergency Department Note ---
Disposition Clinical Impression: Hyperglycemia CVA (cerebral vascular accident) Qualifiers: CVA mechanism: unspecified Qualified Code(s): I63.9 - Cerebral infarction, unspecified Disposition: Admitted As Inpatient Condition: Fair Time of Disposition: 12:14 Neuro HPI - General Stated Complaint: Difficulty in swallowing Time Seen by Provider: 06/08/17 10:55 Source: patient, EMS Mode of arrival: EMS Limitations: no limitations Nursing Notes Reviewed: Yes Vital Signs Reviewed: Yes - History of Present Illness HPI Narrative: Patient was sent from the [facility] due to neurologic symptoms. She states her symptoms started Wednesday evening which is 06/06/17 and have progressed since that time. She states she feels weak on her left side, leg greater than arm. She states she has difficulty speaking and swallowing. When she ambulates she feels as if she is "floating on air." Location: speech, left arm, left leg Severity: mild Quality: weakness Symptoms Improving: No Improves with: none Worsens with: none Context: sudden onset On Anticoagulants: No Associated symptoms: Reports: denies other symptoms Treatments Prior to Arrival: none - Related Data Home Medications: Home Medications Medication Instructions Recorded Confirmed Alendronate Sodium [Fosamax] 10 mg PO DAILY 11/03/16 06/08/17 Aspirin Enteric Coated [Aspirin EC] 81 mg PO DAILY 11/03/16 06/08/17 Cholecalciferol (D-3) [Vitamin D] 1,000 unit PO DAILY 11/03/16 06/08/17 Cyanocobalamin (Vitamin B-12) 1,000 mcg PO DAILY 11/03/16 06/08/17 [Vitamin B12] Furosemide [Lasix] 20 mg PO BID 11/03/16 06/08/17 Losartan Potassium [Cozaar] 50 mg PO DAILY 11/03/16 06/08/17 Metoclopramide [Reglan] 10 mg PO DAILY 11/03/16 06/08/17 Multivitamin [Multi-Day Vitamins] 1 tab PO DAILY 11/03/16 06/08/17 Nitroglycerin [Nitrostat] 0.4 mg SL Q5M PRN 11/03/16 06/08/17 Oxygen 2 l NS AD 11/03/16 06/08/17 Pantoprazole Sodium [Protonix] 40 mg PO BID 11/03/16 06/08/17 Simvastatin [Zocor] 40 mg PO HS 11/03/16 06/08/17 glipiZIDE [Glucotrol] 5 mg PO QAM 11/03/16 06/08/17 Potassium Chloride [Klor-Con 10] 10 meq PO TID 12/24/16 06/08/17 Sucralfate [Carafate] 1 gm PO QID 12/24/16 06/08/17 Budesonide/Formoterol 80/4.5 2 puff IH DAILY 06/08/17 06/08/17 [Symbicort 80/4.5] Insulin Glargine,Hum.rec.anlog 20 unit SQ HS 06/08/17 06/08/17 [Basaglar Kwikpen U-100] Sitagliptin Phosphate [Januvia] 50 mg PO DAILY 06/08/17 06/08/17 Venlafaxine XR (24 HR) [Effexor Xr] 37.5 mg PO DAILY 06/08/17 06/08/17 Allergies/Adverse Reactions: Allergies Allergy/AdvReac Type Severity Reaction Status Date / Time codeine AdvReac Drowsy Verified 11/03/16 07:50 duloxetine [From Cymbalta] AdvReac Nausea Verified 11/03/16 07:50 fish oil AdvReac Nausea Verified 11/03/16 07:50 fluconazole [From Diflucan] AdvReac Hives Verified 11/03/16 07:50 [place]-3 acid Ethyl Esters AdvReac Nausea Verified 11/03/16 07:50 [From [place]] omeprazole AdvReac Nausea Verified 11/03/16 07:50 All systems ED: reviewed and negative except as stated. Constitutional: Reports: as per HPI Eyes: Reports: as per HPI ENT ED: Reports: as per HPI Cardiovascular: Reports: as per HPI Respiratory: Reports: as per HPI Gastrointestinal: Reports: as per HPI Genitourinary: Reports: as per HPI Musculoskeletal: Reports: as per HPI Integumentary: Reports: as per HPI Neurological: Reports: weakness, abnormal gait, other (Left-sided weakness, difficulty swallowing) Psychiatric: Reports: as per HPI Endocrine: Reports: as per HPI Hematological/Lymphatic: Reports: as per HPI Allergic/Immunologic: Reports: as per HPI Past Medical History - Past Medical History Source: patient Medical history: Reports: CHF, COPD, CVA, hypertension, other Surgical history: Reports: hysterectomy, orthopedic, other Psychiatric history: Reports: no psych history - Social History Smoking Status: Former smoker Smokeless Tobacco Status: No Alcohol use: Reports: none Drug use: Reports: none Physical Exam - General Limitations: no limitations General appearance: alert - Head Head exam: atraumatic - Eye Eye exam: Present: normal appearance, PERRL - ENT ENT exam: normal exam - Neck Neck exam: Present: normal inspection - Chest Chest inspection: Present: normal inspection, symmetric chest wall rise - Respiratory Respiratory exam: Present: normal lung sounds bilaterally - Cardiovascular Cardiovascular exam: Present: regular rate, normal rhythm, normal heart sounds - Extremities Exam Extremities exam: Present: normal inspection - Neurological Exam Neurological exam: Present: alert, oriented X3, other (Mild dysarthria. 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 No pronator drift. Patient unable to hold her left leg off the bed versus gravity for more than 3 seconds.) - Psychiatric Psychiatric exam: Present: normal affect - Skin Skin exam: Present: warm, dry, intact Course Course Narrative: The patient presents with neurologic symptoms that are at least 36 hours. This precludes her from being a TPA candidate. I will evaluate her for her subacute stroke with labs, EKG, noncontrast CT of the head. - Reevaluation(s) Reevaluation #1: The patient states she has a history of CVA without residual deficits Reevaluation #2: NIH 3 Reevaluation #3: I will request admission to the medicine service for further evaluation and management Vital Signs Temperature 98.1 F 06/08/17 10:52 Pulse Rate 68 06/08/17 10:52 Respiratory Rate 18 06/08/17 10:52 Blood Pressure 164/93 06/08/17 10:52 O2 Sat by Pulse Oximetry 93 06/08/17 10:52 Temperature 98.1 F 06/08/17 10:52 Pulse Rate 66 06/08/17 11:52 Respiratory Rate 18 06/08/17 11:52 Blood Pressure 154/95 06/08/17 11:52 O2 Sat by Pulse Oximetry 93 06/08/17 10:52 Oxygen Delivery Oxygen Delivery Room Air Neuro Symptoms/Deficit - Medical Records Medical records reviewed: Yes I reviewed the patient's medical records. - Lab Data Lab results reviewed: Yes I reviewed the patient's lab results. Result diagrams: 06/08/17 11:12 06/08/17 11:12 Lab Results 06/08/17 06/08/17 06/08/17 Range/Units 11:12 11:12 11:12 WBC 8.2 (4.3-11.1) K/mcL RBC 4.31 (3.82-4.97) M/mcL Hgb 12.7 (11.5-15.4) g/dL Hct 38.3 (35.3-44.9) % MCV 88.9 (83.0-100.0) fL MCH 29.5 (28.0-33.3) pg MCHC 33.2 (31.6-35.5) g/dL RDW 12.3 (11.5-14.5) % Plt Count 132 L (140-400) K/mcL MPV 12.0 (9.4-12.4) fL Immature Gran % 0.2 (0-4) % Seg Neutrophils % 66.8 % Lymphocytes % 23.6 % Monocytes % 7.3 % Eosinophils % 1.7 % Basophils % 0.4 % Neutrophils # 5.5 (1.6-8.9) K/mcL Lymphocytes # 1.9 (0.6-4.6) K/mcL Monocytes # 0.6 (0.0-1.3) K/mcL Eosinophils # 0.1 (0.0-0.6) K/mcL Basophils # 0.0 (0.0-0.2) K/mcL PT 11.1 (9.4-12.1) Seconds INR 1.0 Sodium 135 L (136-145) mEq/L Potassium 4.1 (3.5-5.1) mEq/L Chloride 103 (98-107) mEq/L Carbon Dioxide 24 (23-29) mEq/L BUN 17 (8-23) mg/dL Creatinine 1.26 H (0.60-1.20) mg/dL Est GFR ( Amer) 50 L (> 60) Est GFR (Non-Af Amer) 41 L (> 60) BUN/Creatinine Ratio 13 (6-26) Glucose 169 H (70-105) mg/dL Calculated Osmolality 285 (280-300) Calcium 9.5 (8.6-10.3) mg/dL Total Bilirubin 0.5 (0.3-1.0) mg/dL AST 30 (13-39) Units/L ALT 30 (7-52) Units/L Alkaline Phosphatase 92 (34-104) Units/L Troponin I < 0.03 (< 0.04) ng/mL Serum Total Protein 6.4 (6.4-8.9) g/dL Albumin 4.1 (3.5-5.7) g/dL Globulin 2.3 L (2.4-3.5) g/dL Albumin/Globulin Ratio 1.8 (1.1-2.2) Urine Color (Yellow) Urine Clarity (Clear) Urine pH (5.0-8.0) pH Units Ur Specific [place] (1.010-1.025) Urine Protein (Neg-Trace) mg/dL Urine Glucose (UA) (Normal) mg/dL Urine Ketones (Negative) mg/dL Urine Blood (Negative) Urine Nitrite (Negative) Urine Bilirubin (Negative) Urine Urobilinogen (Normal) mg/dL Ur Leukocyte Esterase (Negative) Urine Microscopic RBC (0-3) per hpf Urine Microscopic WBC (0-3) per hpf Ur Squamous Epith Cells (None-Few) per lpf Urine Bacteria (None-Few) per hpf Hyaline Casts (None-Few) per lpf 06/08/17 Range/Units 11:54 WBC (4.3-11.1) K/mcL RBC (3.82-4.97) M/mcL Hgb (11.5-15.4) g/dL Hct (35.3-44.9) % MCV (83.0-100.0) fL MCH (28.0-33.3) pg MCHC (31.6-35.5) g/dL RDW (11.5-14.5) % Plt Count (140-400) K/mcL MPV (9.4-12.4) fL Immature Gran % (0-4) % Seg Neutrophils % % Lymphocytes % % Monocytes % % Eosinophils % % Basophils % % Neutrophils # (1.6-8.9) K/mcL Lymphocytes # (0.6-4.6) K/mcL Monocytes # (0.0-1.3) K/mcL Eosinophils # (0.0-0.6) K/mcL Basophils # (0.0-0.2) K/mcL PT (9.4-12.1) Seconds INR Sodium (136-145) mEq/L Potassium (3.5-5.1) mEq/L Chloride (98-107) mEq/L Carbon Dioxide (23-29) mEq/L BUN (8-23) mg/dL Creatinine (0.60-1.20) mg/dL Est GFR ( Amer) (> 60) Est GFR (Non-Af Amer) (> 60) BUN/Creatinine Ratio (6-26) Glucose (70-105) mg/dL Calculated Osmolality (280-300) Calcium (8.6-10.3) mg/dL Total Bilirubin (0.3-1.0) mg/dL AST (13-39) Units/L ALT (7-52) Units/L Alkaline Phosphatase (34-104) Units/L Troponin I (< 0.04) ng/mL Serum Total Protein (6.4-8.9) g/dL Albumin (3.5-5.7) g/dL Globulin (2.4-3.5) g/dL Albumin/Globulin Ratio (1.1-2.2) Urine Color Yellow (Yellow) Urine Clarity Clear (Clear) Urine pH 6.5 (5.0-8.0) pH Units Ur Specific [place] 1.017 (1.010-1.025) Urine Protein Negative (Neg-Trace) mg/dL Urine Glucose (UA) Normal (Normal) mg/dL Urine Ketones Negative (Negative) mg/dL Urine Blood Negative (Negative) Urine Nitrite Negative (Negative) Urine Bilirubin Negative (Negative) Urine Urobilinogen Normal (Normal) mg/dL Ur Leukocyte Esterase Moderate H (Negative) Urine Microscopic RBC 0-3 (0-3) per hpf Urine Microscopic WBC 5-15 H (0-3) per hpf Ur Squamous Epith Cells Many H (None-Few) per lpf Urine Bacteria None Seen (None-Few) per hpf Hyaline Casts None Seen (None-Few) per lpf - Radiology Data Radiology results reviewed: Yes I reviewed the patient's radiology results. - EKG Data EKG attestation: Yes I reviewed and interpreted this EKG. EKG results narrative: Normal sinus rhythm rate 69 P-R 154 QRS 90 QT/QTC 354/374. No acute ST segment elevation TPA Checklist - Eligibilty for IV tPA 1. LKW equal to or less than 4.5 hours be before treatment: No 2. Clinical diagnosis of ischemic stroke causing deficit: Yes 3. Age 18 years or older: Yes - Contraindications 4. Evidence of intracranial hemorrhage on pretreatment CT: No - LKW: 3-4.5 hrs Add. Warnings/Precautions Patient/family understanding: The patient/family members have been counseled and understood the risk, benefit , and alternatives of treatment.
[2017-06-08 11:22] LABS: Basophils % 0.4 %; Eosinophils # 0.1 K/mcL (0.0-0.6); Eosinophils % 1.7 %; Hematocrit 38.3 % (35.3-44.9); Hemoglobin 12.7 g/dL (11.5-15.4); Immature Granulocytes % 0.2 % (0-4); Lymphocytes # 1.9 K/mcL (0.6-4.6); Lymphocytes % 23.6 %; Mean Corpuscular HGB Conc 33.2 g/dL (31.6-35.5); Mean Corpuscular Hemoglobin 29.5 pg (28.0-33.3); Mean Corpuscular Volume 88.9 fL (83.0-100.0); Monocytes # 0.6 K/mcL (0.0-1.3); Monocytes % 7.3 %; Neutrophils # 5.5 K/mcL (1.6-8.9); Platelet Count 132 K/mcL (140-400); Red Blood Count 4.31 M/mcL (3.82-4.97); Red Cell Distribution Width 12.3 % (11.5-14.5); Segmented Neutrophils % 66.8 %
[2017-06-08 11:31] LABS: Prothrombin Time 11.1 Seconds (9.4-12.1)
[2017-06-08 11:47] LABS: Alanine Aminotransferase 30 Units/L (7-52); Albumin 4.1 g/dL (3.5-5.7); Albumin/Globulin Ratio 1.8 (1.1-2.2); Alkaline Phosphatase 92 Units/L (34-104); Aspartate Amino Transferase 30 Units/L (13-39); BUN/Creatinine Ratio 13 (6-26); Bilirubin,Total 0.5 mg/dL (0.3-1.0); Blood Urea Nitrogen 17 mg/dL (8-23); Calcium 9.5 mg/dL (8.6-10.3); Carbon Dioxide 24 mEq/L (23-29); Chloride 103 mEq/L (98-107); Globulin 2.3 g/dL (2.4-3.5); Glucose 169 mg/dL (70-105); Osmolality,Calculated 285 (280-300); Potassium 4.1 mEq/L (3.5-5.1); Sodium 135 mEq/L (136-145); Total Protein 6.4 g/dL (6.4-8.9); Troponin I < 0.03 ng/mL (< 0.04); eGFR For African Americans 50 (> 60); eGFR For Non-African Americans 41 (> 60)
[2017-06-08 12:09] LABS: Bilirubin,Urine Negative (Negative); Blood,Urine Negative (Negative); Clarity,Urine Clear (Clear); Color,Urine Yellow (Yellow); Glucose,Urine (UA) Normal (Normal); Ketones,Urine Negative (Negative); Leukocyte Esterase,Urine Moderate (Negative); Nitrite,Urine Negative (Negative); PH,Urine 6.5 pH Units (5.0-8.0); Protein,Urine Negative (Neg-Trace); Specific Gravity,Urine 1.017 (1.010-1.025); Urobilinogen,Urine Normal (Normal)
[2017-06-08 12:10] LABS: Bacteria,Urine None Seen per hpf (None-Few); Hyaline Casts,Urine None Seen per lpf (None-Few); RBC,Urine 0-3 per hpf (0-3); Squamous Epithelial Cell,Urine Many per lpf (None-Few)
[2017-06-08] MEDS ORDERED: Aspirin 325 MG TABLET PO ONE (12:14)
--- NOTE | 2017-06-08 13:10 | Internal Med History&Physical ---
Date of Encounter: 06/08/17 Time of Encounter: 12:30 Assessment and Plan (1) CVA (cerebral vascular accident) Current visit: Yes Status: Acute -Patient with dysarthria and left lower extremity weakness -Head CT reviewed by myself showed no acute findings. -Will order MRI of brain in addition to MRA of head/neck and echocardiogram. -Patient will remain nothing by mouth until evaluated by swallow evaluation. -Neurology has been consulted by the ER and will see the patient. Qualifiers: CVA mechanism: unspecified Qualified Code(s): I63.9 - Cerebral infarction, unspecified (2) ELIU (acute kidney injury) Current visit: No Status: Acute -Creatinine 1.26 today but creatinine has been elevated since 10/2016 with baseline approximately 1.3 -Patient with history of congestive heart failure so we will give gentle IV fluids up to 1 L -Continue to monitor (3) Hypertension Current visit: No Status: Acute -Blood pressure slightly elevated will not attempt to lower due to CVA -Continue to monitor Qualifiers: Hypertension type: essential hypertension Qualified Code(s): I10 - Essential (primary) hypertension (4) CHF (congestive heart failure) Current visit: Yes Status: Acute -Will continue home dose of oral Lasix Qualifiers: Qualified Code(s): I50.9 - Heart failure, unspecified (5) Diabetes Current visit: Yes Status: Acute -Blood glucose 169 on admission; continue home medications Qualifiers: Diabetes mellitus type: type 2 Qualified Code(s): E11.9 - Type 2 diabetes mellitus without complications; Z79.4 - terminal carman (current) use of insulin; Z79.4 - longterm (current) use of insulin; Z79.4 - terminal carman (current) use of insulin; Z79.4 - longterm (current) use of insulin (6) Obesity (BMI 30-39.9) Current visit: No Status: Chronic Lifestyle modifications (7) DVT prophylaxis Current visit: No Status: Acute Subcutaneous heparin Internal Medicine - H&P: HPI Chief complaint: Dysarthria and left lower extremity weakness Admitted From: Home Plans for Post Hospital Care: Home History of present illness: Patient is a 76-year-old female with past medical history significant for CVA ( 1991), type 2 diabetes, hypertension and hyperlipidemia who presents to the ER on 06/08/17 due to left-sided weakness. Patient reports that on the evening of 06/06/17 she felt funny. That evening, she also reported of having difficulty swallowing food and fullness/altered sensation on the left side of her face. Patient went to bed and when she woke up the next day (06/07/17), she continued to have difficulty swallowing. Patient talked to her daughter over the phone who noticed that patient had slurred speech and difficulty talking. Patient decided to go to her primary care physician office on 06/08/17 who sent her to the ER for further evaluation. She reports of having a stroke around 1991 without any residual symptoms. She does have difficulty ambulating and uses a walker at baseline. In the ER, CT of the head was reviewed by myself and revealed no acute findings. Patient will be admitted to the medical surgical floor for dysarthria with left lower extremity weakness. Past Med Surg Social Fam HX - Past Medical History Medical history: CHF, COPD, CVA, hypertension, other Psychiatric history: no psych history - Past Surgical History Surgical History: hysterectomy, orthopedic, other - Social History Smoking Status: Former smoker Smokeless Tobacco Status: No Alcohol use: none Drug use: none - Family History Mother Hx Family Cardiac Disorders: Yes Internal Medicine - H&P: Meds Alendronate Sodium [Fosamax] 10 mg PO DAILY 11/03/16 [History] Aspirin Enteric Coated [Aspirin EC] 81 mg PO DAILY 11/03/16 [History] Cholecalciferol (D-3) [Vitamin D] 1,000 unit PO DAILY 11/03/16 [History] Cyanocobalamin (Vitamin B-12) [Vitamin B12] 1,000 mcg PO DAILY 11/03/16 [History ] Furosemide [Lasix] 20 mg PO BID 11/03/16 [History] Losartan Potassium [Cozaar] 50 mg PO DAILY 11/03/16 [History] Metoclopramide [Reglan] 10 mg PO DAILY 11/03/16 [History] Multivitamin [Multi-Day Vitamins] 1 tab PO DAILY 11/03/16 [History] Nitroglycerin [Nitrostat] 0.4 mg SL Q5M PRN 11/03/16 [History] Oxygen 2 l NS AD 11/03/16 [History] Pantoprazole Sodium [Protonix] 40 mg PO BID 11/03/16 [History] Simvastatin [Zocor] 40 mg PO HS 11/03/16 [History] glipiZIDE [Glucotrol] 5 mg PO QAM 11/03/16 [History] Potassium Chloride [Klor-Con 10] 10 meq PO TID 12/24/16 [History] Sucralfate [Carafate] 1 gm PO QID 12/24/16 [History] Budesonide/Formoterol 80/4.5 [Symbicort 80/4.5] 2 puff IH DAILY 06/08/17 [ History] Insulin Glargine,Hum.rec.anlog [Basaglar Kwikpen U-100] 20 unit SQ HS 06/08/17 [ History] Sitagliptin Phosphate [Januvia] 50 mg PO DAILY 06/08/17 [History] Venlafaxine XR (24 HR) [Effexor Xr] 37.5 mg PO DAILY 06/08/17 [History] 3 Allergy/AdvReac Type Severity Reaction Status Date / Time codeine AdvReac Drowsy Verified 11/03/16 07:50 duloxetine [From Cymbalta] AdvReac Nausea Verified 11/03/16 07:50 fish oil AdvReac Nausea Verified 11/03/16 07:50 fluconazole [From Diflucan] AdvReac Hives Verified 11/03/16 07:50 [place]-3 acid Ethyl Esters AdvReac Nausea Verified 11/03/16 07:50 [From [place]] omeprazole AdvReac Nausea Verified 11/03/16 07:50 All Systems PM: A 10-system review of systems was performed and is negative for pertinent findings except as documented above in the HPI. - Constitutional Vitals: Temp Pulse Resp BP Pulse Ox 98.1 F 63 18 193/81 94 06/08/17 10:52 06/08/17 12:52 06/08/17 12:52 06/08/17 12:52 06/08/17 12:52 General appearance: Present: A&O X 3, answers questions appropriately - Head Head exam: Present: atraumatic, normocephalic - Eye Eye exam: Present: EOMI - ENT ENT exam: Present: mucous membranes dry - Respiratory Respiratory exam: Present: CTAB. Absent: accessory muscle use, rales, rhonchi, wheezes - Cardiovascular Cardiovascular exam: Present: RRR, +S1, +S2. Absent: diastolic murmur, gallop, rubs, systolic murmur - GI/Abdominal GI/Abdominal exam: Present: normal bowel sounds, soft, no peritoneal signs. Absent: distended, tenderness - Extremities Exam Extremities exam: Present: pedal edema - Expanded Neurological Exam Neurological exam expanded: Absent: memory loss-recent event, memory loss- remote event Speech: Present: slurred Cranial Nerves: EOM's intact PM: Normal, nystagmus PM: Normal, tongue deviation PM: Normal Cerebellar function: heel to frost: Normal Sensory exam: LE 2 point discrimination: Normal, UE 2 point discrimination: Normal Neuro motor strength exam: LUE: 4, RUE: 5, LLE: 3, RLE: 5 - Psychiatric Psychiatric exam: Present: normal mood - Skin Skin exam: Present: normal color Internal Med - H&P Results - Labs CBC & Chem 7: 06/08/17 11:12 06/08/17 11:12 Labs: Short CBC 06/08/17 Range/Units 11:12 WBC 8.2 (4.3-11.1) K/mcL Hgb 12.7 (11.5-15.4) g/dL Hct 38.3 (35.3-44.9) % Plt Count 132 L (140-400) K/mcL Neutrophils # 5.5 (1.6-8.9) K/mcL BMP 06/08/17 11:12 Sodium 135 L Potassium 4.1 Chloride 103 Carbon Dioxide 24 BUN 17 Creatinine 1.26 H Glucose 169 H Calcium 9.5 Cardiac Enzymes 06/08/17 Range/Units 11:12 Troponin I < 0.03 (< 0.04) ng/mL Liver Function 06/08/17 Range/Units 11:12 Total Bilirubin 0.5 (0.3-1.0) mg/dL AST 30 (13-39) Units/L ALT 30 (7-52) Units/L Alkaline Phosphatase 92 (34-104) Units/L Albumin 4.1 (3.5-5.7) g/dL Urine 06/08/17 Range/Units 11:54 Urine Color Yellow (Yellow) Urine Clarity Clear (Clear) Urine pH 6.5 (5.0-8.0) pH Units Ur Specific [place] 1.017 (1.010-1.025) Urine Protein Negative (Neg-Trace) mg/dL Urine Glucose (UA) Normal (Normal) mg/dL - Impressions ITS Impressions Head CT 06/08/17 10:55 IMPRESSION: No acute intracranial abnormality. If there is persistent clinical concern consider MRI evaluation. Findings compatible with age related atrophy and likely chronic small vessel ischemic change. D/ / Tristan Damon MD / Tristan Damon MD Interpreting Provider: Tristan Damon MD Chest X-Ray 06/08/17 10:56 IMPRESSION: No acute cardiopulmonary findings. D/ / Ania Shah MD / Ania Shah MD Interpreting Provider: Ania Shah MD
[2017-06-08] MEDS ORDERED: Ketorolac 30 MG/ML VIAL IVP PRN (13:17)
[2017-06-08] MEDS ORDERED: Naloxone 0.4 MG/ML INJ IVP PRN (13:25)
[2017-06-08] MEDS ORDERED: 0.9 % Sodium Chloride 1,000 ML IVC SCH (13:45)
--- NOTE | 2017-06-08 17:10 | Neurology - Consult Note ---
Date of Encounter: 06/08/17 Time of Encounter: 14:08 Assessment and Plan (1) CVA (cerebral vascular accident) Current Visit: Yes Status: Acute Patient was been admitted with stroke like symptoms CT scan is negative. Plan: Following's are my recommendations. For secondary stroke prevention patient should continue daily antiplatelet medication and vascular risk factor modification. Order the following test, *MRI of the brain without contrast. *Antiplatelet medication, aspirin 325 mg daily. *Consult physical therapy/ rehabilitation * To reduce the risk of future ischemic stroke patient need continued vascular risk modification, following's are the recommended guidelines LDL goal less than 70 MG per deciliter Smoking cessation reinforced. Diabetes management Blood pressure control should achieve less than 130/80 mmHg BP management should aim to achieve long-term control in a reasonable amount of time. weight management goal for BMI is 18.5 -24.9 Kg/m2 Alcohol : No more than 2 drinks per day for men Patient to continue to follow-up with his primary care physician for continued outpatient risk factor management and modification. Qualifiers: CVA mechanism: unspecified Qualified Code(s): I63.9 - Cerebral infarction, unspecified History of Present Illness HPI: Ms. Gutiérrez is a 76 year old female with past medical history significant for CVA (1991), type 2 diabetes, hypertension and hyperlipidemia who presents to the due to left-sided weakness. Patient reports that on the evening of 06/06/17 she felt funny. That evening, she also reported of having difficulty swallowing food and fullness/altered sensation on the left side of her face. Patient went to bed and when she woke up the next day , she continued to have difficulty swallowing. Patient talked to her daughter over the phone who noticed that patient had slurred speech and difficulty talking. Patient decided to go to her primary care physician office on 06/08/17 who sent her to the ER for further evaluation. She reports of having a stroke around 1991 without any residual symptoms. She does have difficulty ambulating and uses a walker at baseline. In the ER, CT of the head was no acute findings. Past Med Surg Social Fam HX - Past Medical History Medical history: CHF, COPD, CVA, diabetes, hypertension, renal disease, other Psychiatric history: no psych history - Past Surgical History Surgical History: hysterectomy, orthopedic, other - Social History Smoking Status: Former smoker Smokeless Tobacco Status: No Alcohol use: none Drug use: none - Family History Mother Hx Family Cardiac Disorders: Yes Medications and Allergies Alendronate Sodium [Fosamax] 10 mg PO DAILY 11/03/16 [History] Aspirin Enteric Coated [Aspirin EC] 81 mg PO DAILY 11/03/16 [History] Cholecalciferol (D-3) [Vitamin D] 1,000 unit PO DAILY 11/03/16 [History] Cyanocobalamin (Vitamin B-12) [Vitamin B12] 1,000 mcg PO DAILY 11/03/16 [History ] Furosemide [Lasix] 20 mg PO BID 11/03/16 [History] Losartan Potassium [Cozaar] 50 mg PO DAILY 11/03/16 [History] Metoclopramide [Reglan] 10 mg PO DAILY 11/03/16 [History] Multivitamin [Multi-Day Vitamins] 1 tab PO DAILY 11/03/16 [History] Nitroglycerin [Nitrostat] 0.4 mg SL Q5M PRN 11/03/16 [History] Oxygen 2 l NS AD 11/03/16 [History] Pantoprazole Sodium [Protonix] 40 mg PO BID 11/03/16 [History] Simvastatin [Zocor] 40 mg PO HS 11/03/16 [History] glipiZIDE [Glucotrol] 5 mg PO QAM 11/03/16 [History] Potassium Chloride [Klor-Con 10] 10 meq PO TID 12/24/16 [History] Sucralfate [Carafate] 1 gm PO QID 12/24/16 [History] Budesonide/Formoterol 80/4.5 [Symbicort 80/4.5] 2 puff IH DAILY 06/08/17 [ History] Insulin Glargine,Hum.rec.anlog [Basaglar Kwikpen U-100] 20 unit SQ HS 06/08/17 [ History] Sitagliptin Phosphate [Januvia] 50 mg PO DAILY 06/08/17 [History] Venlafaxine XR (24 HR) [Effexor Xr] 37.5 mg PO DAILY 06/08/17 [History] 3 Allergy/AdvReac Type Severity Reaction Status Date / Time codeine AdvReac Drowsy Verified 11/03/16 07:50 duloxetine [From Cymbalta] AdvReac Nausea Verified 11/03/16 07:50 fish oil AdvReac Nausea Verified 11/03/16 07:50 fluconazole [From Diflucan] AdvReac Hives Verified 11/03/16 07:50 [place]-3 acid Ethyl Esters AdvReac Nausea Verified 11/03/16 07:50 [From [place]] omeprazole AdvReac Nausea Verified 11/03/16 07:50 All Systems: The remainder of the systems were reviewed and are negative Physical Examination - Vital Signs Vital Signs: Initial Vital Signs Temp Pulse Resp BP Pulse Ox 98.1 F 68 18 164/93 93 06/08/17 10:52 06/08/17 10:52 06/08/17 10:52 06/08/17 10:52 06/08/17 10:52 - Exam Exam: GENERAL: Comfortable in no acute distress HEENT: Normal LUNGS: CTA HEART: RRR, S1 S2 Audible, no murmur EXTREMITIES: No Pedal edema. DETAILED NEUROLOGICAL EXAMINATION: MENTAL STATUS: Oriented to person, place, date and situation. Memory: knows the President, Aware of recent events Recent Memory Intact Cranial Nerve Examination: CN - II: Visual Acuity, Field of Vision Normal, Fundus examination: No disk edema, Pupils- size shape reaction to light and accommodation: All normal. CN III, IV, : External ocular movements were intact, Pupils were reactive, Nodrooping of the eyelids CN V: Sensation over the face to light touch and pinprick all normal. Corneal reflexes not tested, jaw jerk normal. CN VII: No facial asymmetry, no flattening of nasolabial folds, no difficulty in closing the eyes, no loss of forehead wrinkles, no difficulty in eye-closure, frowning raising eyebrows. CNVIII: No significant hearing loss CN IX, X: Uvula centralized not deviated, Gag reflex: Not tested CN X1: Sternocleidomastoid, trapezius, normal or evidence of any weakness. CN X11: mild spastic speech, , tongue muscle strength normal. Motor examination: No hypertrophy, tone was normal, power grade 0-5 Upper limbs Proximal- No difficulty in lifting the arms above the head. Distal- Noweakness in distal muscles On formal testing 5/5 all over Lower limbs Proximal- No difficulty in getting up from the sitting position Distal- No difficulty in walking On formal testing 4/4 Coordination: Gnlcuq-yz-boze normal. Target pursuit normal finger tapping normal, Rapid alternating moment of wrist normal Sensory system: Superficial sensations- Touch normal. Pain- Pinprick, Temperature all normal, Deep sensation normal, Joint position sense normal. Cortical sensation, Tactile discrimination, localization and extinction all normal. Deep tendon reflexes. Symmetrical bilateral, No evidence of Babinski. No sign of meningeal irritation Gait Examination: Deferred Results - Laboratory Findings CBC and BMP: 06/08/17 11:12 06/08/17 11:12 Abnormal lab findings: Abnormal lab results Plt Count 132 K/mcL (140-400) L 06/08/17 11:12 Sodium 135 mEq/L (136-145) L 06/08/17 11:12 Creatinine 1.26 mg/dL (0.60-1.20) H 06/08/17 11:12 Est GFR ( Amer) 50 (> 60) L 06/08/17 11:12 Est GFR (Non-Af Amer) 41 (> 60) L 06/08/17 11:12 Glucose 169 mg/dL (70-105) H 06/08/17 11:12 POC Glucose 134 (58-89) H 06/08/17 15:11 Globulin 2.3 g/dL (2.4-3.5) L 06/08/17 11:12 Ur Leukocyte Esterase Moderate (Negative) H 06/08/17 11:54 Urine Microscopic WBC 5-15 per hpf (0-3) H 06/08/17 11:54 Ur Squamous Epith Cells Many per lpf (None-Few) H 06/08/17 11:54 Consult Discharge Plan - Plan Referrals: Madeline Rondon [Primary Care Provider] -
[2017-06-08] MEDS ORDERED: Nitroglycerin 0.4 MG TAB.SUBL SL PRN (21:11)
[2017-06-09 04:35] LABS: Basophils % 0.3 %; Eosinophils # 0.1 K/mcL (0.0-0.6); Eosinophils % 1.5 %; Hematocrit 34.2 % (35.3-44.9); Hemoglobin 11.2 g/dL (11.5-15.4); Immature Granulocytes % 0.4 % (0-4); Lymphocytes # 1.9 K/mcL (0.6-4.6); Lymphocytes % 27.6 %; Mean Corpuscular HGB Conc 32.7 g/dL (31.6-35.5); Mean Corpuscular Volume 88.6 fL (83.0-100.0); Mean Platelet Volume 12.2 fL (9.4-12.4); Monocytes # 0.5 K/mcL (0.0-1.3); Monocytes % 7.2 %; Neutrophils # 4.3 K/mcL (1.6-8.9); Platelet Count 114 K/mcL (140-400); Red Blood Count 3.86 M/mcL (3.82-4.97); Red Cell Distribution Width 12.3 % (11.5-14.5)
[2017-06-09 04:51] LABS: Calcium 8.9 mg/dL (8.6-10.3); Chol/HDL Ratio 3.7 (0-4.9); Potassium 4.1 mEq/L (3.5-5.1)
[2017-06-09] MEDS: Budesonide/Formoterol 80/4.5 MDI IH SCH (07:57)
--- NOTE | 2017-06-09 08:04 | Electrocardiograph Report ---
[address] [place] [address] Test Date: 2017-06-08 Pat Name: Munira Gutiérrez Department: 103 Room: 3B Gender: F Promotions Assistant: NANCY : [id number] Requested By: Rick Grossman Order Number: [id number] Reading MD: Hugh Lopez MD Measurements Intervals [place] Rate: 69 P: 43 AK: 154 QRS: 8 QRSD: 90 T: 40 QT: 354 QTc: 374 Interpretive Statements SINUS RHYTHM Electronically Signed On 06-09-2017 8:02:39 EDT by Hugh Lopez MD
[2017-06-09] MEDS: Aspirin Enteric Coated 81 MG Tablet PO SCH (08:59)
[2017-06-09] MEDS: Venlafaxine XR (24 HR) 37.5 MG CAP.ER.24H PO SCH (08:59)
[2017-06-09] MEDS: Furosemide 20 MG TABLET PO SCH ×2 (09:00→15:52)
[2017-06-09] MEDS: Cholecalciferol (D-3) 1,000 UNIT TABLET PO SCH (09:00)
[2017-06-09] MEDS ORDERED: NON-FORMULARY MEDICATION 1 EACH EACH (Alendronate Sodium [Fosamax] 10 MG) PO SCH (09:00)
[2017-06-09] MEDS: Multivit/Ca/Min/Fe/FA 1 TAB TABLET PO SCH (09:00)
[2017-06-09] MEDS: Sucralfate 1 GM TABLET PO SCH ×4 (09:00→20:54)
[2017-06-09] MEDS: Cyanocobalamin (B-12) 1,000 MCG TABLET PO SCH (09:00)
[2017-06-09] MEDS ORDERED: Maalox Oral Soln 30 mL PO PRN (11:09)
--- NOTE | 2017-06-09 11:13 | Internal Med Progress Note ---
Date of Encounter: 06/09/17 Time of Encounter: 11:11 - Assessment and plan (1) CVA (cerebral vascular accident) Current Visit: Yes Status: Acute Assessment and plan: Presented with dysarthria left lower extremity weakness-workup is negative for any evidence of acute stroke on MRI no critical stenosis in the intra-or extracranial vasculature Echocardiogram did show evidence of a small PFO neurology suggest continue on antiplatelet therapy Neurology has been consult at [facility] their recommendations We will continue with physical therapy occupational therapy as well as speech Continue with statin Qualifiers: CVA mechanism: unspecified Qualified Code(s): I63.9 - Cerebral infarction, unspecified (2) CHF (congestive heart failure) Current Visit: Yes Status: Acute Assessment and plan: Presently stable we will continue with Lasix Qualifiers: Heart failure type: diastolic Heart failure chronicity: chronic Qualified Code(s): I50.32 - Chronic diastolic (congestive) heart failure (3) Diabetes Current Visit: Yes Status: Acute Assessment and plan: Accu-Cheks before meals at bedtime sliding scale insulin Qualifiers: Diabetes mellitus type: type 2 Diabetes mellitus ferry terminal supervisor insulin use: with ferry terminal supervisor use Diabetes mellitus complication status: without complication Qualified Code(s): E11.9 - Type 2 diabetes mellitus without complications; Z79.4 - terminal make up operator (current) use of insulin; Z79.4 - terminal make up operator ( current) use of insulin; Z79.4 - terminal make up operator (current) use of insulin; Z79.4 - terminal make up operator (current) use of insulin (4) ELIU (acute kidney injury) Current Visit: No Status: Acute Assessment and plan: Patient's baseline is around 1.3 she does have a history of congestive heart failure-creatinine is slowly improving we will continue to monitor Monitor intake and output daily weights Avoid nephrotoxins (5) Hypertension Current Visit: No Status: Acute Qualifiers: Hypertension type: essential hypertension Qualified Code(s): I10 - Essential (primary) hypertension (6) Obesity (BMI 30-39.9) Current Visit: No Status: Chronic Assessment and plan: Lifestyle modification (7) DVT prophylaxis Current Visit: No Status: Acute Assessment and plan: Subcutaneous heparin - Subjective Interval history: Patient feels that she is progressing back to baseline. Does have some slurred speech and difficulty chewing. Was eval by ST soft texture diet - She also cont to complain of numbness to left jaw , L sided facial droop - Constitutional Vitals: Temp Pulse Resp BP Pulse Ox 98.4 F 69 16 148/80 96 06/09/17 11:00 06/09/17 11:00 06/09/17 11:00 06/09/17 11:00 06/09/17 07:57 General appearance: Present: A&O X 3, answers questions appropriately - Head Head exam: Present: atraumatic, normocephalic - Eye Eye exam: Present: PERRL, conjuntiva pink, sclera anicteric Pupils: Present: PERRL - Neck Neck exam general surgery: Present: supple, trachea midline. Absent: lymphadenopathy - Respiratory Respiratory exam: Absent: accessory muscle use, rales, rhonchi, wheezes - Cardiovascular Cardiovascular exam: Present: RRR, +S1, +S2. Absent: diastolic murmur, gallop, rubs, systolic murmur - GI/Abdominal GI/Abdominal exam: Present: normal bowel sounds, soft, no peritoneal signs. Absent: distended, tenderness - Extremities Exam Extremities exam: Present: warm, radial pulses palpable and symmetrical. Absent : calf tenderness, cyanotic, pedal edema - Neurological Exam Neurological exam: Present: CN II-XII intact, oriented X3, no focal deficits, facial droop. Absent: pronater drift, speech deficit - Expanded Neurological Exam Patient oriented to: Present: person, place, time Speech: Present: slurred - Skin Skin exam: Present: dry, intact Internal Medicine: Result - Labs CBC & Chem 7: 06/09/17 04:11 06/09/17 04:11 Labs: Short CBC 06/09/17 Range/Units 04:11 WBC 6.8 (4.3-11.1) K/mcL Hgb 11.2 L D (11.5-15.4) g/dL Hct 34.2 L (35.3-44.9) % Plt Count 114 L (140-400) K/mcL Neutrophils # 4.3 (1.6-8.9) K/mcL BMP 06/09/17 04:11 Sodium 137 Potassium 4.1 Chloride 108 H Carbon Dioxide 25 BUN 16 Creatinine 1.24 H Glucose 167 H Calcium 8.9 - ABG Interpretation ABG results: PT/INR, D-dimer PT 11.1 Seconds (9.4-12.1) 06/08/17 11:12 - Impressions Impressions Brain MRI 06/08/17 13:44 IMPRESSION: No acute intracranial abnormality. There is mild cerebral white matter disease. D/ / Colton Claudio MD / Colton Claudio MD Interpreting Provider: Colton Claudio MD Head MRA 06/08/17 13:44 IMPRESSION: No focal significant vascular narrowing. There is no discrete aneurysm D/ / Jhonatan Norwood / Jhonatan Norwood Interpreting Provider: Jhonatan Norwood Neck MRA 06/08/17 13:44 IMPRESSION: There is xehe-qe-shpteyov narrowing of proximal left common carotid artery. Otherwise unremarkable MRA of the neck. D/ / Colton Claudio MD / Colton Claudio MD Interpreting Provider: Colton Claudio MD Echocardiogram 06/08/17 13:47 Impressions: LVEF 60-65%. Mild left ventricular diastolic dysfunction. Normal right ventricular structure and function. Mild mitral regurgitation. Mild tricuspid regurgitation. Mild pulmonic regurgitation. No pulmonary hypertension. There is a PFO by agitated saline contrast, Left Ventricular Wall Motion: Rest Echo Findings All wall segments showed normal motion. Findings: Study Quality * Technically adequate exam. ECG Findings * Normal sinus rhythm. Left Ventricle * LVEF 60-65%. * Normal LV chamber size, wall thickness and function. * Mild left ventricular diastolic dysfunction. Right Ventricle * Normal right ventricular structure and function. Left Atrium * Normal left atrial size. Right Atrium * Normal right atrial size. Mitral Valve * Normal mitral valve structure. * No mitral stenosis. * Mild mitral regurgitation. Aortic Valve * No aortic regurgitation. * Trileaflet aortic valve. * No aortic stenosis. Tricuspid Valve * Tricuspid valve not well visualized. * Mild tricuspid regurgitation. Pulmonic Valve * Pulmonic valve is not well visualized. * No pulmonic stenosis. * Mild pulmonic regurgitation. Pulmonary Artery * Pulmonary artery not well visualized. Aorta * Normally sized aortic root. Pericardium * There is no pericardial effusion present. Interatrial Septum * There is a PFO by agitated saline contrast, IVC * The IVC is not well evaluated. Consult Discharge Plan - Plan Referrals: Madeline Rondon [Primary Care Provider] -
--- NOTE | 2017-06-09 17:08 | Neurology Progress Note ---
Date of Encounter: 06/09/17 Time of Encounter: 07:45 Assessment and Plan (1) TIA (transient ischemic attack) Current Visit: Yes Status: Acute At this time it is not clear that indeed patient did have arterial TIA or not the symptoms seems to be concerning she was admitted with this weakness so far workup is negative no evidence of any acute stroke on MRI of the brain at the same time no critical stenosis in any of the intra-or extracranial vasculature. Echocardiogram did show an evidence of a small PFO for which suggest that continue on antiplatelet therapy. She would benefit from physical therapy and perhaps may need short-term rehabilitation. Other workup is as per primary team. Patient also has features of generalized anxiety she may benefit from anxiolytic agent Qualifiers: Transient cerebral ischemia type: unspecified Qualified Code(s): G45.9 - Transient cerebral ischemic attack, unspecified Subjective Interval history: Patient seems to be doing better his speech is still spastic but not as it was yesterday. Weakness has also improved is still having some symptoms but overall doing better. MRI of the brain did not show any acute abnormality Objective - Constitutional Vitals: Temp Pulse Resp BP Pulse Ox 98.8 F 67 16 113/69 94 06/09/17 14:58 06/09/17 14:58 06/09/17 14:58 06/09/17 14:58 06/09/17 14:58 - Neurological Exam Sensorimotor examination: Present: other (No focal findings on examinations generalized weakness able to move all 4 extremities equally slightly spastic his speech but no dysarthria and no) Motor Examination: Present: grossly full strength in all extremities ( features of aphasia) Results - Laboratory Findings CBC and BMP: 06/09/17 04:11 06/09/17 04:11 Abnormal lab findings: Abnormal lab results Hgb 11.2 g/dL (11.5-15.4) L D 06/09/17 04:11 Hct 34.2 % (35.3-44.9) L 06/09/17 04:11 Plt Count 114 K/mcL (140-400) L 06/09/17 04:11 Chloride 108 mEq/L (98-107) H 06/09/17 04:11 Creatinine 1.24 mg/dL (0.60-1.20) H 06/09/17 04:11 Est GFR ( Amer) 51 (> 60) L 06/09/17 04:11 Est GFR (Non-Af Amer) 42 (> 60) L 06/09/17 04:11 Glucose 167 mg/dL (70-105) H 06/09/17 04:11 POC Glucose 166 (58-89) H 06/09/17 11:50 Globulin 2.3 g/dL (2.4-3.5) L 06/08/17 11:12 Triglycerides 150 mg/dL (< 150) H 06/09/17 04:11 HDL Cholesterol 31 mg/dL (40-59) L 06/09/17 04:11 Ur Leukocyte Esterase Moderate (Negative) H 06/08/17 11:54 Urine Microscopic WBC 5-15 per hpf (0-3) H 06/08/17 11:54 Ur Squamous Epith Cells Many per lpf (None-Few) H 06/08/17 11:54 Consult Discharge Plan - Plan Referrals: Madeline Rondon [Primary Care Provider] -
[2017-06-09] MEDS: Insulin DETEMIR 100 UNIT/ML X5UNITS SQ SCH (20:54)
[2017-06-09] MEDS ORDERED: NON-FORMULARY MEDICATION 1 EACH EACH (Insulin Glargine,Hum.Rec.Anlog [Basaglar Kwikpen U-1 SQ SCH (21:00)
[2017-06-10] MEDS: Pantoprazole 40 MG VIAL IVP SCH ×2 (00:56→08:11)
[2017-06-10 04:02] LABS: Basophils % 0.3 %; Eosinophils # 0.1 K/mcL (0.0-0.6); Eosinophils % 1.6 %; Hemoglobin 11.6 g/dL (11.5-15.4); Immature Granulocytes % 0.3 % (0-4); Lymphocytes # 1.7 K/mcL (0.6-4.6); Lymphocytes % 27.7 %; Mean Corpuscular HGB Conc 32.2 g/dL (31.6-35.5); Mean Corpuscular Hemoglobin 28.9 pg (28.0-33.3); Mean Corpuscular Volume 89.8 fL (83.0-100.0); Mean Platelet Volume 12.5 fL (9.4-12.4); Monocytes # 0.4 K/mcL (0.0-1.3); Monocytes % 6.8 %; Neutrophils # 3.9 K/mcL (1.6-8.9); Platelet Count 123 K/mcL (140-400); Red Blood Count 4.01 M/mcL (3.82-4.97); Red Cell Distribution Width 12.2 % (11.5-14.5); Segmented Neutrophils % 63.3 %
[2017-06-10 04:19] LABS: Calcium 9.7 mg/dL (8.6-10.3); Potassium 4.2 mEq/L (3.5-5.1)
[2017-06-10] MEDS: Furosemide 20 MG TABLET PO SCH ×2 (08:09→16:41)
[2017-06-10] MEDS: Sucralfate 1 GM TABLET PO SCH ×4 (08:10→20:31)
[2017-06-10] MEDS: Aspirin Enteric Coated 81 MG Tablet PO SCH (08:10)
[2017-06-10] MEDS: Venlafaxine XR (24 HR) 37.5 MG CAP.ER.24H PO SCH (08:11)
[2017-06-10] MEDS: Cyanocobalamin (B-12) 1,000 MCG TABLET PO SCH (08:12)
[2017-06-10] MEDS: Multivit/Ca/Min/Fe/FA 1 TAB TABLET PO SCH (08:12)
[2017-06-10] MEDS: Cholecalciferol (D-3) 1,000 UNIT TABLET PO SCH (08:12)
[2017-06-10] MEDS: Budesonide/Formoterol 80/4.5 MDI IH SCH (08:26)
[2017-06-10] MEDS ORDERED: *HR* Dextrose 50 % in Water (Syg) 50 ML SYRINGE IVP PRN (12:27)
[2017-06-10] MEDS ORDERED: Dextrose Gel 15 GM/37.5 ML TUBE PO PRN ×2 (12:27)
[2017-06-10] MEDS ORDERED: D5% in Water 1,000 ML IVC PRN (12:27)
[2017-06-10] MEDS: Insulin LISPRO 300 UNITS/3 ML VIAL SQ SCH ×2 (12:42→17:47)
--- NOTE | 2017-06-10 17:05 | Neurology Progress Note ---
Date of Encounter: 06/10/17 Time of Encounter: 07:40 Assessment and Plan (1) TIA (transient ischemic attack) Current Visit: Yes Status: Acute This patient who was Presented with dysarthria left lower extremity weakness- workup is negative for any evidence of acute stroke on MRI no critical stenosis in the intra-or extracranial vasculature There is evidence of mild small PFO I suggested to continue on antiplatelet therapy. Patient may benefit from short-term rehabilitation Follow physical therapy recommendations overall she is stable okay to discharge from neurology standpoint Qualifiers: Transient cerebral ischemia type: unspecified Qualified Code(s): G45.9 - Transient cerebral ischemic attack, unspecified Subjective Interval history: Patient seems to be doing better his speech is still spastic but not as it was yesterday. Weakness has also improved is still having some symptoms but overall doing better. MRI of the brain did not show any acute abnormality Echocardiogram did show evidence of a small PFO, MRA has been negative Objective - Constitutional Vitals: Temp Pulse Resp BP Pulse Ox 98.4 F 70 14 123/69 94 06/10/17 15:22 06/10/17 15:22 06/10/17 15:22 06/10/17 15:22 06/10/17 15:22 - Neurological Exam Sensorimotor examination: Present: other (No focal findings on examinations generalized weakness able to move all 4 extremities equally slightly spastic his speech but no dysarthria and no) Motor Examination: Present: grossly full strength in all extremities ( features of aphasia) Results - Laboratory Findings CBC and BMP: 06/10/17 02:48 06/10/17 02:48 Abnormal lab findings: Abnormal lab results Plt Count 123 K/mcL (140-400) L 06/10/17 02:48 MPV 12.5 fL (9.4-12.4) H 06/10/17 02:48 Creatinine 1.27 mg/dL (0.60-1.20) H 06/10/17 02:48 Est GFR ( Amer) 49 (> 60) L 06/10/17 02:48 Est GFR (Non-Af Amer) 41 (> 60) L 06/10/17 02:48 Glucose 212 mg/dL (70-105) H 06/10/17 02:48 POC Glucose 203 mg/dL (58-89) H 06/10/17 16:31 Globulin 2.3 g/dL (2.4-3.5) L 06/08/17 11:12 Triglycerides 150 mg/dL (< 150) H 06/09/17 04:11 HDL Cholesterol 31 mg/dL (40-59) L 06/09/17 04:11 Ur Leukocyte Esterase Moderate (Negative) H 06/08/17 11:54 Urine Microscopic WBC 5-15 per hpf (0-3) H 06/08/17 11:54 Ur Squamous Epith Cells Many per lpf (None-Few) H 06/08/17 11:54 Consult Discharge Plan - Plan Referrals: Madeline Rondon [Primary Care Provider] -
[2017-06-10] MEDS ORDERED: Acetaminophen 325 MG TABLET PO PRN (18:10)
--- NOTE | 2017-06-10 19:37 | Internal Med Progress Note ---
Date of Encounter: 06/10/17 Time of Encounter: 12:00 - Assessment and plan (1) CVA (cerebral vascular accident) Current Visit: Yes Status: Acute Assessment and plan: Presented with dysarthria left lower extremity weakness-workup is negative for any evidence of acute stroke on MRI no critical stenosis in the intra-or extracranial vasculature Echocardiogram did show evidence of a small PFO neurology suggest continue on antiplatelet therapy we will check lower extremity doppler to r/o any DVT I did discuss this with cardiology Dr Rai-No need ANDREA at this time- agree with antiplatelet and lower extremity Doppler Neurology has been consult at [facility] their recommendations We will continue with physical therapy occupational therapy as well as speech Continue with statin Qualifiers: CVA mechanism: unspecified Qualified Code(s): I63.9 - Cerebral infarction, unspecified (2) CHF (congestive heart failure) Current Visit: Yes Status: Acute Assessment and plan: Presently stable we will continue with Lasix Qualifiers: Heart failure type: diastolic Heart failure chronicity: chronic Qualified Code(s): I50.32 - Chronic diastolic (congestive) heart failure (3) Diabetes Current Visit: Yes Status: Acute Assessment and plan: Presently stable Accu-Cheks before meals at bedtime sliding scale insulin Qualifiers: Diabetes mellitus type: type 2 Diabetes mellitus residential insulin use: with moth exterminator use Diabetes mellitus complication status: without complication Qualified Code(s): E11.9 - Type 2 diabetes mellitus without complications; Z79.4 - long term care administrator (current) use of insulin; Z79.4 - [facility] ( current) use of insulin; Z79.4 - [facility] (current) use of insulin; Z79.4 - [facility] (current) use of insulin (4) ELIU (acute kidney injury) Current Visit: No Status: Acute Assessment and plan: Patient's baseline is around 1.3 she does have a history of congestive heart failure-creatinine is slowly improving we will continue to monitor Monitor intake and output daily weights Avoid nephrotoxins will give gentle hydration overnight (5) Hypertension Current Visit: No Status: Acute Qualifiers: Hypertension type: essential hypertension Qualified Code(s): I10 - Essential (primary) hypertension (6) Obesity (BMI 30-39.9) Current Visit: No Status: Chronic Assessment and plan: Lifestyle modification (7) DVT prophylaxis Current Visit: No Status: Acute Assessment and plan: Subcutaneous heparin - Subjective Interval history: Patient complains of difficulty with speech and movement of mouth. She appears to be speaking more clearly than yesterday. She feels well and denies any pain or discomfort - Constitutional Vitals: Temp Pulse Resp BP Pulse Ox 98.4 F 70 14 123/69 94 06/10/17 15:22 06/10/17 15:22 06/10/17 15:22 06/10/17 15:22 06/10/17 15:22 General appearance: Present: A&O X 3, answers questions appropriately - Head Head exam: Present: atraumatic, normocephalic - Eye Eye exam: Present: PERRL, conjuntiva pink, sclera anicteric Pupils: Present: PERRL - Neck Neck exam general surgery: Present: supple, trachea midline. Absent: lymphadenopathy - Respiratory Respiratory exam: Present: CTAB. Absent: accessory muscle use, rales, rhonchi, wheezes - Cardiovascular Cardiovascular exam: Present: RRR, +S1, +S2. Absent: diastolic murmur, gallop, rubs, systolic murmur - GI/Abdominal GI/Abdominal exam: Present: normal bowel sounds, soft, no peritoneal signs. Absent: distended, tenderness - Extremities Exam Extremities exam: Present: warm, radial pulses palpable and symmetrical. Absent : calf tenderness, cyanotic, pedal edema - Neurological Exam Neurological exam: Present: CN II-XII intact, oriented X3, no focal deficits, facial droop. Absent: pronater drift, speech deficit - Skin Skin exam: Present: dry, intact Internal Medicine: Result - Labs CBC & Chem 7: 06/10/17 02:48 06/10/17 02:48 Labs: Short CBC 06/10/17 Range/Units 02:48 WBC 6.2 (4.3-11.1) K/mcL Hgb 11.6 (11.5-15.4) g/dL Hct 36.0 (35.3-44.9) % Plt Count 123 L (140-400) K/mcL Neutrophils # 3.9 (1.6-8.9) K/mcL BMP 06/10/17 02:48 Sodium 138 Potassium 4.2 Chloride 103 Carbon Dioxide 29 BUN 15 Creatinine 1.27 H Glucose 212 H Calcium 9.7 - ABG Interpretation ABG results: PT/INR, D-dimer PT 11.1 Seconds (9.4-12.1) 06/08/17 11:12 Consult Discharge Plan - Plan Referrals: Madeline Rondon [Primary Care Provider] -
[2017-06-10] MEDS ORDERED: 0.9 % Sodium Chloride 1,000 ML IVC SCH (19:45)
[2017-06-10] MEDS: Insulin DETEMIR 100 UNIT/ML X5UNITS SQ SCH (20:35)
[2017-06-10] MEDS ORDERED: Insulin LISPRO 300 UNITS/3 ML VIAL SQ SCH (21:00)
[2017-06-11 07:07] LABS: Basophils % 0.3 %; Eosinophils # 0.2 K/mcL (0.0-0.6); Eosinophils % 2.4 %; Hematocrit 36.8 % (35.3-44.9); Hemoglobin 11.9 g/dL (11.5-15.4); Immature Granulocytes % 0.5 % (0-4); Lymphocytes # 2.2 K/mcL (0.6-4.6); Mean Corpuscular HGB Conc 32.3 g/dL (31.6-35.5); Mean Corpuscular Hemoglobin 29.3 pg (28.0-33.3); Mean Corpuscular Volume 90.6 fL (83.0-100.0); Mean Platelet Volume 12.4 fL (9.4-12.4); Monocytes # 0.5 K/mcL (0.0-1.3); Monocytes % 7.1 %; Neutrophils # 3.8 K/mcL (1.6-8.9); Platelet Count 124 K/mcL (140-400); Red Blood Count 4.06 M/mcL (3.82-4.97); Red Cell Distribution Width 12.1 % (11.5-14.5); Segmented Neutrophils % 56.7 %
[2017-06-11 07:08] LABS: BUN/Creatinine Ratio 13 (6-26); Blood Urea Nitrogen 14 mg/dL (8-23); Calcium 9.1 mg/dL (8.6-10.3); Carbon Dioxide 26 mEq/L (23-29); Chloride 106 mEq/L (98-107); Glucose 128 mg/dL (70-105); Osmolality,Calculated 292 (280-300); Potassium 3.7 mEq/L (3.5-5.1); Sodium 140 mEq/L (136-145); eGFR For African Americans > 60 (> 60); eGFR For Non-African Americans 50 (> 60)
[2017-06-11] MEDS: Budesonide/Formoterol 80/4.5 MDI IH SCH (07:52)
[2017-06-11] MEDS: Insulin LISPRO 300 UNITS/3 ML VIAL SQ SCH ×2 (08:36→12:24)
[2017-06-11] MEDS ORDERED: Furosemide 20 MG TABLET PO SCH (09:00)
[2017-06-11] MEDS: Sucralfate 1 GM TABLET PO SCH ×2 (09:11→12:24)
[2017-06-11] MEDS: Multivit/Ca/Min/Fe/FA 1 TAB TABLET PO SCH (09:11)
[2017-06-11] MEDS: Cholecalciferol (D-3) 1,000 UNIT TABLET PO SCH (09:11)
[2017-06-11] MEDS: Cyanocobalamin (B-12) 1,000 MCG TABLET PO SCH (09:11)
[2017-06-11] MEDS: Aspirin Enteric Coated 81 MG Tablet PO SCH (09:11)
[2017-06-11] MEDS: Venlafaxine XR (24 HR) 37.5 MG CAP.ER.24H PO SCH (09:12)
[2017-06-11] MEDS: Pantoprazole 40 MG VIAL IVP SCH (09:14)
--- NOTE | 2017-06-11 10:39 | Discharge Summary ---
Orders not resulted at time of discharge: Pending orders 06/08/17 13:48 Bedside Swallowing Evaluation [EVAL] Routine Date of Encounter: 06/11/17 Time of Encounter: 10:36 - Discharge Diagnosis (1) CVA (cerebral vascular accident) Priority: Primary Status: Acute Comments: Patient will continue with outpatient PT and OT and speech therapy Continue with aspirin and statin Follow-up with primary care physician Qualifiers: CVA mechanism: unspecified Qualified Code(s): I63.9 - Cerebral infarction, unspecified (2) CHF (congestive heart failure) Priority: Secondary Status: Acute Comments: Continue with home Lasix Qualifiers: Heart failure type: diastolic Heart failure chronicity: chronic Qualified Code(s): I50.32 - Chronic diastolic (congestive) heart failure (3) Diabetes Priority: Secondary Status: Acute Qualifiers: Diabetes mellitus type: type 2 Diabetes mellitus long term care pharmacist insulin use: with long term care pharmacist use Diabetes mellitus complication status: without complication Qualified Code(s): E11.9 - Type 2 diabetes mellitus without complications; Z79.4 - emt intermediate (current) use of insulin; Z79.4 - jail ( current) use of insulin; Z79.4 - emt intermediate (current) use of insulin; Z79.4 - jail (current) use of insulin (4) ELIU (acute kidney injury) Priority: Secondary Status: Resolved (5) Hypertension Priority: Secondary Status: Acute Comments: Continue with home medications Qualifiers: Hypertension type: essential hypertension Qualified Code(s): I10 - Essential (primary) hypertension (6) Obesity (BMI 30-39.9) Priority: Secondary Status: Chronic Comments: Encourage lifestyle changes Hospital course: Ms. Gutiérrez is a 76 year old female past medical history of CVA type 2 diabetes hypertension hyperlipidemia presented to the emergency room with left-sided weakness. 2 days prior to presentation [facility] ER she had been experiencing difficulty swallowing and a fullness/altered sensation on the left side of her face. Her symptoms did not improve and her family noticed that she had slurred speech. She presented to her primary care physician on 06/08 he sent her to the ER for evaluation. CT of head was negative for any acute findings MRA of head and neck were unremarkable, MRI of brain with no acute intracranial abnormality. Echocardiogram did reveal a PFO. Patient was seen by neurology who recommends continued aspirin and statin. Lower extremity Dopplers were negative for any DVT. During admission patient did experience an AK creatinine of 1.27. She was given gentle IV fluids and returned back to baseline. Patient was seen by PT and OT as well as speech therapy. Recommending home health therapy. Presently patient denies any pain or discomfort she does continue to have some difficulty with speaking. She is ambulating around the room without difficulty. I did review medications as well as follow-up appointments with patient, I advised patient to follow-up with PCP since this provider noticed her past and can adjust medications accordingly. Patient did verbalize understanding. Patient is hemodynamically stable and ready for discharge. Discharge discussed with: patient - Time Spent with Patient Total time spent providing and/or coordinating discharge services: - Discharge Medications Home Medications: Alendronate Sodium [Fosamax] 10 mg PO DAILY 11/03/16 [History] Aspirin Enteric Coated [Aspirin EC] 81 mg PO DAILY 11/03/16 [History] Cholecalciferol (D-3) [Vitamin D] 1,000 unit PO DAILY 11/03/16 [History] Cyanocobalamin (Vitamin B-12) [Vitamin B12] 1,000 mcg PO DAILY 11/03/16 [History ] Furosemide [Lasix] 20 mg PO BID 11/03/16 [History] Losartan Potassium [Cozaar] 50 mg PO DAILY 11/03/16 [History] Metoclopramide [Reglan] 10 mg PO DAILY 11/03/16 [History] Multivitamin [Multi-Day Vitamins] 1 tab PO DAILY 11/03/16 [History] Nitroglycerin [Nitrostat] 0.4 mg SL Q5M PRN 11/03/16 [History] Oxygen 2 l NS AD 11/03/16 [History] Pantoprazole Sodium [Protonix] 40 mg PO BID 11/03/16 [History] Simvastatin [Zocor] 40 mg PO HS 11/03/16 [History] glipiZIDE [Glucotrol] 5 mg PO QAM 11/03/16 [History] Potassium Chloride [Klor-Con 10] 10 meq PO TID 12/24/16 [History] Sucralfate [Carafate] 1 gm PO QID 12/24/16 [History] Budesonide/Formoterol 80/4.5 [Symbicort 80/4.5] 2 puff IH DAILY 06/08/17 [ History] Insulin Glargine,Hum.rec.anlog [Rigoberto Cruz U-100] 20 unit SQ HS 06/08/17 [ History] Sitagliptin Phosphate [Januvia] 50 mg PO DAILY 06/08/17 [History] Venlafaxine XR (24 HR) [Effexor Xr] 37.5 mg PO DAILY 06/08/17 [History] Allergies/Adverse Reactions: 3 Allergy/AdvReac Type Severity Reaction Status Date / Time codeine AdvReac Drowsy Verified 11/03/16 07:50 duloxetine [From Cymbalta] AdvReac Nausea Verified 11/03/16 07:50 fish oil AdvReac Nausea Verified 11/03/16 07:50 fluconazole [From Diflucan] AdvReac Hives Verified 11/03/16 07:50 [place]-3 acid Ethyl Esters AdvReac Nausea Verified 11/03/16 07:50 [From [place]] omeprazole AdvReac Nausea Verified 11/03/16 07:50 Date of admission: 06/08/17 13:36 Primary care physician: Madeline Rondon Consults: 06/08/17 14:33 Consult to Speech Therapy [CONS] Routine Comment: Evaluate, develop and implement POC Reason for Consult: Slurred speech, TIA/CVA rule out. Call Completed: Yes 06/10/17 09:21 Consult to Nurse Navigator [CONS] Routine Comment: Discharging clinician: Skylar Chaney Anticipated date of discharge: 06/11/17 - Constitutional Vitals: Temp Pulse Resp BP Pulse Ox 98.1 F 64 14 146/72 96 06/11/17 06:58 06/11/17 06:58 06/11/17 06:58 06/11/17 06:58 06/11/17 06:58 General appearance: Present: A&O X 3, answers questions appropriately - Head Head exam: Present: atraumatic, normocephalic - Eye Eye exam: Present: PERRL, conjuntiva pink, sclera anicteric Pupils: Present: PERRL - Neck Neck exam general surgery: Present: supple, trachea midline. Absent: lymphadenopathy - Respiratory Respiratory exam: Present: CTAB. Absent: accessory muscle use, rales, rhonchi, wheezes - Cardiovascular Cardiovascular exam: Present: RRR, +S1, +S2. Absent: diastolic murmur, gallop, rubs, systolic murmur - GI/Abdominal GI/Abdominal exam: Present: normal bowel sounds, soft, no peritoneal signs. Absent: distended, tenderness - Extremities Exam Extremities exam: Present: warm, radial pulses palpable and symmetrical. Absent : calf tenderness, cyanotic, pedal edema - Neurological Exam Neurological exam: Present: CN II-XII intact, oriented X3, no focal deficits, strengths equal and symetr throughout, facial droop, speech deficit. Absent: pronater drift - Skin Skin exam: Present: dry, intact - Patient Status Disposition: Home Health Service Condition: Fair Functional capacity at discharge: independent ambulation Overall status at discharge: patient is progressing back to baseline - Discharge Instructions Instructions: Transient Ischemic Attack (DC), Heart Failure (DC), Diabetes Mellitus Type 2 in Adults (DC) Follow Up With: Madeline Rondon [Primary Care Provider] - - Diet and Activity Activity: as per physical therapy Diet: advance to your usual diet
[2017-06-11 10:42] VITALS: BP 169/87
--- NOTE | 2017-06-11 17:48 | Physician Discharge Referral ---
Home Health/Hosp Referral Info Transfer to: Home Health Attending Provider: Shiv Cheng Provider in Charge Post Discharge: PCP - Diagnosis (1) CVA (cerebral vascular accident) Priority: Primary Status: Acute (2) CHF (congestive heart failure) Priority: Secondary Status: Acute (3) Diabetes Priority: Secondary Status: Acute (4) ELIU (acute kidney injury) Priority: Secondary Status: Resolved (5) Hypertension Priority: Secondary Status: Acute (6) Obesity (BMI 30-39.9) Priority: Secondary Status: Chronic - Respiratory Orders Smoking Cessation: Smoking cessation has been advised. For more information, call the [place] Tobacco Quit Line at 0-446-DIYQ-NOW. - Diet/Nutrition Diet/Nutrition Orders: Regular - Activity Activity Orders: Up ad norma - Services Needed Following services are medically necessary services: Physical Therapy, Occupational Therapy, Speech Therapy - Transfer Medications Home Medications: Alendronate Sodium [Fosamax] 10 mg PO DAILY 11/03/16 [History] Aspirin Enteric Coated [Aspirin EC] 81 mg PO DAILY 11/03/16 [History] Cholecalciferol (D-3) [Vitamin D] 1,000 unit PO DAILY 11/03/16 [History] Cyanocobalamin (Vitamin B-12) [Vitamin B12] 1,000 mcg PO DAILY 11/03/16 [History ] Furosemide [Lasix] 20 mg PO BID 11/03/16 [History] Losartan Potassium [Cozaar] 50 mg PO DAILY 11/03/16 [History] Metoclopramide [Reglan] 10 mg PO DAILY 11/03/16 [History] Multivitamin [Multi-Day Vitamins] 1 tab PO DAILY 11/03/16 [History] Nitroglycerin [Nitrostat] 0.4 mg SL Q5M PRN 11/03/16 [History] Oxygen 2 l NS AD 11/03/16 [History] Pantoprazole Sodium [Protonix] 40 mg PO BID 11/03/16 [History] Simvastatin [Zocor] 40 mg PO HS 11/03/16 [History] glipiZIDE [Glucotrol] 5 mg PO QAM 11/03/16 [History] Potassium Chloride [Klor-Con 10] 10 meq PO TID 12/24/16 [History] Sucralfate [Carafate] 1 gm PO QID 12/24/16 [History] Budesonide/Formoterol 80/4.5 [Symbicort 80/4.5] 2 puff IH DAILY 06/08/17 [ History] Insulin Glargine,Hum.rec.anlog [Arnoldoaglkhanh Cruz U-100] 20 unit SQ HS 06/08/17 [ History] Sitagliptin Phosphate [Januvia] 50 mg PO DAILY 06/08/17 [History] Venlafaxine XR (24 HR) [Effexor Xr] 37.5 mg PO DAILY 06/08/17 [History] Allergies/Adverse Reactions: 3 Allergy/AdvReac Type Severity Reaction Status Date / Time codeine AdvReac Drowsy Verified 11/03/16 07:50 duloxetine [From Cymbalta] AdvReac Nausea Verified 11/03/16 07:50 fish oil AdvReac Nausea Verified 11/03/16 07:50 fluconazole [From Diflucan] AdvReac Hives Verified 11/03/16 07:50 [place]-3 acid Ethyl Esters AdvReac Nausea Verified 11/03/16 07:50 [From [place]] omeprazole AdvReac Nausea Verified 11/03/16 07:50 Certification: Further, I certify that my clinical findings support that this patient is homebound (i.e. absences from home require considerable and taxing effort and are for medical reasons or jew services or infrequently or short duration when for other reasons) because: Homebound Reason: Leaving home requires considerable and taxing effort due to condition Attestation: My signature below is to certify that this patient is under my care and that I, or nurse practitioner, or a physician's general office assistant working with me, has a face-to -face encounter with this patient.
== END 2017-06-11 17:45 | disposition home health service (06) | DRG 92 ==
LOC: 3BNU 10:50 → EMEROO 10:50 → 3BNU 13:12
PROVIDERS: ADMIT Hospitalist; ATTEND Registered Nurse

== ENCOUNTER 2018-10-05 08:41 | Inpatient (IN) ==
--- NOTE | 2018-10-03 15:17 | Discharge Summary ---
Date of Encounter: 10/03/18 - Hospital Course Hospital course: Ms. Gutiérrez is a 77 year old female - Time Spent with Patient Total time spent providing and/or coordinating discharge services: - Discharge Medications Prescriptions: No Action Multivitamin [Multi-Day Vitamins] 1 tab PO DAILY GlipiZIDE [Glucotrol] 5 mg PO QAM Pantoprazole Sodium [Protonix] 40 mg PO BID Nitroglycerin [Nitrostat] 0.4 mg SL Q5M PRN PRN Reason: Chest Pain Simvastatin [Zocor] 40 mg PO HS Aspirin Enteric Coated [Aspirin EC] 81 mg PO DAILY Alendronate Sodium [Fosamax] 10 mg PO DAILY Cholecalciferol (D-3) [Vitamin D] 1,000 unit PO DAILY Oxygen 2 l NS AD Sucralfate [Carafate] 1 gm PO QID Potassium Chloride [Klor-Con 10] 10 meq PO TID Budesonide/Formoterol 80/4.5 [Symbicort 80/4.5] 2 puff IH DAILY Sitagliptin Phosphate [Januvia] 50 mg PO DAILY ALPRAZolam [Xanax 1 MG Tablet] 1 mg PO HS Insulin Glargine,Hum.rec.anlog [Lantus Solostar] 50 unit SQ QPM Insulin LISPRO [Humalog Kwikpen U-100] 0 unit SQ TID Spironolactone [Aldactone] 50 mg PO DAILY Acetaminophen [Tylenol] 500 mg PO Q6HR PRN tablet PRN Reason: Mild Pain Methyl Salicylate/Menthol [Bengay] 1 appl TP BID PRN tube PRN Reason: Chest Pain Home Medications: Alendronate Sodium [Fosamax] 10 mg PO DAILY 11/03/16 [History] Aspirin Enteric Coated [Aspirin EC] 81 mg PO DAILY 11/03/16 [History] Cholecalciferol (D-3) [Vitamin D] 1,000 unit PO DAILY 11/03/16 [History] GlipiZIDE [Glucotrol] 5 mg PO QAM 11/03/16 [History] Multivitamin [Multi-Day Vitamins] 1 tab PO DAILY 11/03/16 [History] Nitroglycerin [Nitrostat] 0.4 mg SL Q5M PRN 11/03/16 [History] Oxygen 2 l NS AD 11/03/16 [History] Pantoprazole Sodium [Protonix] 40 mg PO BID 11/03/16 [History] Simvastatin [Zocor] 40 mg PO HS 11/03/16 [History] Potassium Chloride [Klor-Con 10] 10 meq PO TID 12/24/16 [History] Sucralfate [Carafate] 1 gm PO QID 12/24/16 [History] Budesonide/Formoterol 80/4.5 [Symbicort 80/4.5] 2 puff IH DAILY 06/08/17 [History] Sitagliptin Phosphate [Januvia] 50 mg PO DAILY 06/08/17 [History] ALPRAZolam [Xanax 1 MG Tablet] 1 mg PO HS 02/04/18 [History] Insulin Glargine,Hum.rec.anlog [Lantus Solostar] 50 unit SQ QPM 02/04/18 [History] Insulin LISPRO [Humalog Kwikpen U-100] 0 unit SQ TID 02/04/18 [History] Spironolactone [Aldactone] 50 mg PO DAILY 02/04/18 [History] Acetaminophen [Tylenol] 500 mg PO Q6HR PRN tablet 02/05/18 [Rx] Methyl Salicylate/Menthol [Bengay] 1 appl TP BID PRN tube 02/05/18 [Rx] Allergies/Adverse Reactions: Allergy/AdvReac Type Severity Reaction Status Date / Time atenolol AdvReac Nausea Verified 09/27/18 14:26 codeine AdvReac Drowsy Verified 09/27/18 14:26 duloxetine [From Cymbalta] AdvReac Nausea Verified 09/27/18 14:26 fish oil AdvReac Nausea Verified 09/27/18 14:26 fluconazole [From Diflucan] AdvReac Hives Verified 09/27/18 14:26 [place]-3 acid Ethyl Esters AdvReac Nausea Verified 09/27/18 14:26 [From [place]] omeprazole AdvReac Nausea Verified 09/27/18 14:26
[~2018-10-05 08:41] MED LIST: Ropivacaine/PF 0.5% 24.62 ML, EPINEPHrine 0.25 MG, Ketorolac 15 MG, Water for inj. (ste... IR ONE
[2018-10-05] MEDS ORDERED: CeFAZolin Syr 2,000MG/20 ML 2,000 MG/20 ML SYRINGE IVPB ONE (09:02)
[2018-10-05] MEDS ORDERED: Albuterol 2.5 MG/3 ML NEBULIZER IH ONE (09:02)
[2018-10-05] MEDS ORDERED: Albuterol 2.5 MG/3 ML NEBULIZER ONE (09:12)
[2018-10-05] MEDS ORDERED: Ringers Solution, Lactated 1,000 ML IVC SCH (09:15)
--- NOTE | 2018-10-05 09:22 | Anesthesia Evaluation PreOp ---
Date of Encounter: 10/05/18 Time of Encounter: 09:20 - Past History Planned Operation: Right Total Knee Arthroplasty Cardiac History: CHF, Angina, HTN, Hyperlipidemia, Other (Mod. 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 EGD,) : No (PRUDENCIO) Alcohol Use: none Drug use: none Medications and Allergies Alendronate Sodium [Fosamax] 10 mg PO DAILY 11/03/16 [History] Aspirin Enteric Coated [Aspirin EC] 81 mg PO DAILY 11/03/16 [History] Cholecalciferol (D-3) [Vitamin D] 1,000 unit PO DAILY 11/03/16 [History] GlipiZIDE [Glucotrol] 5 mg PO QAM 11/03/16 [History] Multivitamin [Multi-Day Vitamins] 1 tab PO DAILY 11/03/16 [History] Nitroglycerin [Nitrostat] 0.4 mg SL Q5M PRN 11/03/16 [History] Oxygen 2 l NS AD 11/03/16 [History] Pantoprazole Sodium [Protonix] 40 mg PO BID 11/03/16 [History] Simvastatin [Zocor] 40 mg PO HS 11/03/16 [History] Potassium Chloride [Klor-Con 10] 10 meq PO TID 12/24/16 [History] Sucralfate [Carafate] 1 gm PO QID 12/24/16 [History] Budesonide/Formoterol 80/4.5 [Symbicort 80/4.5] 2 puff IH DAILY 06/08/17 [History] Sitagliptin Phosphate [Januvia] 50 mg PO DAILY 06/08/17 [History] ALPRAZolam [Xanax 1 MG Tablet] 1 mg PO HS 02/04/18 [History] Insulin Glargine,Hum.rec.anlog [Lantus Solostar] 50 unit SQ QPM 02/04/18 [History] Insulin LISPRO [Humalog Kwikpen U-100] 0 unit SQ TID 02/04/18 [History] Spironolactone [Aldactone] 50 mg PO DAILY 02/04/18 [History] Acetaminophen [Tylenol] 500 mg PO Q6HR PRN tablet 02/05/18 [Rx] Methyl Salicylate/Menthol [Bengay] 1 appl TP BID PRN tube 02/05/18 [Rx] Allergy/AdvReac Type Severity Reaction Status Date / Time atenolol AdvReac Nausea Verified 09/27/18 14:26 codeine AdvReac Drowsy Verified 09/27/18 14:26 duloxetine [From Cymbalta] AdvReac Nausea Verified 09/27/18 14:26 fish oil AdvReac Nausea Verified 09/27/18 14:26 fluconazole [From Diflucan] AdvReac Hives Verified 09/27/18 14:26 [place]-3 acid Ethyl Esters AdvReac Nausea Verified 09/27/18 14:26 [From [place]] omeprazole AdvReac Nausea Verified 09/27/18 14:26 - Meds/Allergy Pre-op Review Medications Reviewed: Yes Allergies Reviewed: Yes Beta Blockers on Current Med List: No Anesthesia Results - Labs Laboratory Tests 09/27/18 09/27/18 09/27/18 15:15 15:15 15:15 WBC 9.8 Hgb 12.1 Hct 38.9 Plt Count 138 L INR 1.1 Sodium 138 Potassium 4.8 Chloride 104 Carbon Dioxide 26 BUN 16 Creatinine 1.31 H Hemoglobin A1c 09/27/18 15:15 WBC Hgb Hct Plt Count INR Sodium Potassium Chloride Carbon Dioxide BUN Creatinine Hemoglobin A1c 5.7 H - Imaging EKG: report reviewed (SINUS RHYTHM LOW QRS VOLTAGE IN PRECORDIAL LEADS Electronically Signed On 06-16-2018 5:59:31 EDT by Giorgi Dunn) Additional studies: Echo with Imaging Enhancement Agent Name: Munira Gutiérrez Date of Study: 02/05/2018 EV/EV echocardiogram w enhance Impressions: LVEF 60-65%. Normal LV chamber size, wall thickness and function. Mild left ventricular diastolic dysfunction. Normal right ventricular structure and function. No significant valvular dysfunction. No evidence of pulmonary hypertension. 12/30 Stress EF-70% No Ischemia Anesthesia Exam O2 Sat Height 1.57 m Weight 88.451 kg O2 Sat by Pulse Oximetry 95 Vital Signs Temp Pulse Resp BP Pulse Ox 97.9 F 97 18 133/83 95 10/05/18 09:07 10/05/18 09:07 10/05/18 09:07 10/05/18 09:07 10/05/18 09:07 Blood glucose: 113 NPO (# of Hours): > 8 hrs Pain Scale: 0 Pain Scale Used: Numeric (1 - 10) - HEENT Pupil (Motor): Pupils equal, EOMI Mallampati: III Teeth: Normal Oral Opening: Greater than 3 - RELIEF OPERATOR LOC: Oriented RELIEF OPERATOR Motor: Normal RUE, Normal LUE, Normal RLE, Normal LLE, Normal Face RELIEF OPERATOR Sensory: Normal: RUE, LUE, RLE, LLE, Face - Cardiac Rhythm: Regular Murmur: None JVD: No Carotid Bruit: No - Pulmonary Breath Sounds: bilateral Clear Respiratory Effort: Symmetrical Anesthesia Assess/Plan ASA Score: 3 Level of consciousness: Cooperative Anesthetic Plan: General, Regional Nerve Block Regional Nerve Block Plan: Adductor canal Reason for No Neuroaxial/Regional Block: Patient refusal Autologous Blood: Yes Monitoring Plan: Standard Monitors Recovery Plan: PACU
[2018-10-05] MEDS ORDERED: Lidocaine -MPF 2% 2 ML VIAL ONE (09:35)
[2018-10-05] MEDS ORDERED: Ondansetron 4 MG/2 ML VIAL ONE (09:35)
[2018-10-05] MEDS ORDERED: Dexamethasone 4 MG/ML VIAL ONE (09:35)
[2018-10-05] MEDS ORDERED: *HR* FentaNYL (PF) 100 MCG/2 ML VIAL ONE (09:36)
[2018-10-05] MEDS ORDERED: Propofol 500 MG/50 ML INFUS..BTL ONE (09:37)
--- NOTE | 2018-10-05 09:46 | History & Physical Report ---
Date of Encounter: 10/05/18 Time of Encounter: 09:46 24 Hour HP Update - Instructions Instructions: If the History and Physical is less than 30 days old and was completed prior to A.M. admission and or procedure and has NOT been updated on calendar day of procedure please complete this update prior to performing procedure. - Update Patient reports changes in Medical Condition: No Changes in examination, assessment, or condition: No Changes in Medication: No Preop tests/diagnostics Reviewed: Yes Surgery Remains Indicated: Yes Consent for Planned Operative Procedure(s) Verified: Yes - Pre-Operative Checklist Preoperative Checklist Indicated: No Prophylactic Antibiotic Ordered: Yes Is VTE Prophylaxis Indicated?: Yes
[2018-10-05] MEDS ORDERED: Celecoxib 100 MG CAPSULE PO ONE (09:53)
[2018-10-05] MEDS ORDERED: Acetaminophen IV 1,000 MG/100 ML INFUS..BTL IVPB ONE (09:56)
[2018-10-05] MEDS ORDERED: Gabapentin 300 MG CAPSULE PO ONE (09:56)
[2018-10-05] MEDS ORDERED: *HR* OxyCODONE Immed Rel 5 MG TABLET PO ONE (09:57)
[2018-10-05] MEDS ORDERED: Ethanol\\Acetic Acid\\Na Ace\\Ben 1,000 ML IRRIG.SOLN IR ONE (10:08)
[2018-10-05] MEDS ORDERED: ROPIVACAINE/PF/NS 0.25% 1 EACH SYRINGE INTRAART ONE (10:18)
[2018-10-05] MEDS ORDERED: *HR* Succinylcholine 200 MG/10 ML VIAL IVP ONE (10:33)
[2018-10-05] MEDS ORDERED: *HR* PHENYLEPHRINE 1,000 MCG/10 ML SYRINGE IVP ONE (10:49)
[2018-10-05] MEDS ORDERED: *HR* HYDROMORPHONE 2 MG/ML VIAL ONE (10:52)
--- NOTE | 2018-10-05 11:22 | Anesthesia Procedures ---
Date of Encounter: 10/05/18 Time of Encounter: 10: Procedures: Anesthesia - Nerve Block Procedure Date: 10/05/18 Time: 10:25 Checklist: Correct Patient Identifier, Correct procedure, History checked Correct side: Right Monitor Applied: EKG, BP, Pulse Oximetry Sedation: Fentanyl (mcg): 100 Indication: Post Op Analgesia Block Type: Other (adductor canal) Sterile Technique: Yes Ultrasound used: Yes Anatomy identified: Yes Visual spread of Local: Yes Blood on Needle Aspiration: No Smooth Injection of Local: Yes Pain with Injection of Local: No Prep: Chlorhexadine Needle: 21 x 100 mm Stimuplex Local: Ropivacaine (0.25% ) Volume (cc): 20 Number of Attempts: 1 Complications: None/effective block Vitals: O2 Sat Height 1.57 m Height 1.57 m Weight 88.451 kg Weight 88.451 kg O2 Sat by Pulse Oximetry 94 O2 Sat by Pulse Oximetry 92 O2 Sat by Pulse Oximetry 95 O2 Sat by Pulse Oximetry 95 O2 Sat by Pulse Oximetry 95 Vital Signs Temp Pulse Resp BP Pulse Ox 97.9 F 97 18 133/83 95 10/05/18 09:07 10/05/18 09:07 10/05/18 09:07 10/05/18 09:07 10/05/18 09:07
--- NOTE | 2018-10-05 11:35 | Orthopedic Operative Note ---
Date of procedure: 10/05/18 Pre-op diagnosis: Right knee arthritis Post-op diagnosis: same Procedure: Procedure: Right robotic-assisted Total knee replacement Estimated blood loss: 200 cc Hardware: Metal and polyethylene replacement. [place] Femur: 3 Tibia:3 TS insert: 9 Patella: 36 Exam Under anesthesia:4 degrees flexion contracture 12 degree varus as calculated by the robot full flexion and no instability Procedural Notes: Grade 3 arthritic changes all 3 compartments. Operative procedure: The patient was brought to the operating room and placed on the operating room table. After general anesthesia was administered the operative knee was examined. Findings were noted in the exam under anesthesia. The operative extremity was prepped and draped in sterile surgical fashion. The patient received IV antibiotics prior to skin incision. A standard midline incision was made centered over the patella. The incision was made through the skin and subcutaneous tissue. A medial parapatellar tendon approach was performed. Care was taken to preserve tissue along the medial aspect of the patella. And to protect the patella tendon. The deep MCL was released off the medial tibia. The infra patella fat pad was excised. The patella was everted and cut was made at the level of the insertion of the quadriceps and patella tendon. The patella was sized the guide was seated and the lug holes are drilled. Knee was brought into flexion. Patient noted to have grade 3 arthritic changes all 3 compartments. Steinmann pins were placed in the tibia and the femur for the tibial and femoral arrays respectively. Checkpoints were also placed in the tibia and the femur for calculation purposes. The knee including the femur and the tibial registered. Osteophytes, ACL and PCL were excised at this point. Extension and flexion were assessed with a valgus stress components were adjusted on the computer to balance the knee. Femoral cuts were made first with robotic assistance, these included the anterior cut posterior cuts chamfer cuts. Tibial cut was then performed with robotic assistance as well. Bone fragments were removed, as well as the medial and lateral meniscus. The size 3 femoral guide was seated box cut was made lug holes are drilled. The size 3 tibial tray was seated and prepared with the fin cutter. Trial reduction with the 9 TS Suzanne revealed extension of 0 degree and 6 degrees varus full flexion. No varus valgus instability. Trial reduction revealed excellent patella tracking. All trial components were removed all bony surfaces were irrigated. The Tibia was seated followed by the femur, The selected Suzanne size was seated and secured patella. Patient had similar findings for motion and stability. The knee was closed by the PA. The knee was then irrigated out with 2 L of pulse irrigation. The extensor mechanism was closed with #2 FiberWire suture and #2 PDS suture. The subcutaneous tissue was then irrigated and closed deep with #1 PDS suture superficially with 0 PDS suture and skin was closed with zip tie The patient was then placed in a sterile dressing and a postoperative brace extubated and transferred to recovery room in stable condition. Anesthesia: GETA Surgeon: Mac Hartley Was there an business support assistant present: No Estimated blood loss (cc): 200 Condition: stable Disposition: PACU
--- NOTE | 2018-10-05 13:22 | Anesthesia Evaluation Post Op ---
Date of Encounter: 10/05/18 Time of Encounter: 13:21 - Vital Signs Vital Signs: Selected Entries 10/05/18 13:00 Temperature 97.6 F Pulse Rate 74 Respiratory Rate 14 Blood Pressure 117/70 O2 Sat by Pulse Oximetry 95 - Lungs Lungs: Clear Ascult./Percussion - Airway Airway: Non-obstructed - Cardiovascular Regular Rate - Mental Status Mental Status: Alert & Oriented, Answers Appropriately - Nausea Vomiting Nausea Vomiting: Not Present - Hydration Hydration: NPO - Discharge PostOp Status: Transfer Patient to floor
[2018-10-05 13:35] LABS: Hematocrit 36.4 % (35.3-44.9); Hemoglobin 11.4 g/dL (11.5-15.4)
[2018-10-05] MEDS ORDERED: Naloxone 0.4 MG/ML INJ IVP PRN (13:41)
[2018-10-05] MEDS ORDERED: Sennosides 8.6 MG TABLET PO PRN (13:41)
[2018-10-05] MEDS ORDERED: Dextrose Gel 15 GM/37.5 ML TUBE PO PRN ×2 (13:41)
[2018-10-05] MEDS ORDERED: Nitroglycerin 0.4 MG TAB.SUBL SL PRN (13:41)
[2018-10-05] MEDS ORDERED: *HR* Dextrose 50 % in Water (Syg) 50 ML SYRINGE IVP PRN (13:41)
[2018-10-05] MEDS ORDERED: MOM Conc 10 ML UD.LIQ PO PRN (13:41)
[2018-10-05] MEDS ORDERED: *HR* Promethazine 25 MG/ML VIAL IVP PRN (13:41)
[2018-10-05] MEDS ORDERED: Temazepam 15 MG CAPSULE PO PRN (13:41)
[2018-10-05] MEDS ORDERED: D5% in Water 1,000 ML IVC PRN (13:41)
[2018-10-05] MEDS: Insulin LISPRO 300 UNITS/3 ML VIAL SQ SCH ×3 (14:53→21:21)
[2018-10-05] MEDS: Sucralfate 1 GM TABLET PO SCH ×2 (15:07→21:20)
[2018-10-05] MEDS: *HR* OxyCODONE Immed Rel 5 MG TABLET PO PRN (15:07)
[2018-10-05] MEDS: Gabapentin 300 MG CAPSULE PO SCH ×2 (15:09→21:20)
--- NOTE | 2018-10-05 15:14 | Discharge Summary ---
Orders not resulted at time of discharge: Pending orders 10/05/18 11:38 Surgical Pathology [PTH] Routine 10/05/18 13:41 US anesthesia pain block [US] Routine 10/06/18 04:00 Basic Metabolic Panel DAILY Complete Blood Count [HEME] DAILY 10/07/18 04:00 Basic Metabolic Panel DAILY Complete Blood Count [HEME] DAILY Date of Encounter: 10/09/18 Time of Encounter: 12:00 - Discharge Diagnosis (1) Status post total right knee replacement Priority: Primary Status: Acute (2) Arthritis of right knee Priority: Primary Status: Chronic (3) CAD (coronary artery disease) Priority: Secondary Status: Chronic Qualifiers: Coronary Disease-Associated Artery/Lesion type: unspecified vessel or lesion type [place] vs. transplanted heart: unspecified whether [place] or transplanted heart Associated angina: angina presence unspecified Qualified Code(s): I25.10 - Atherosclerotic heart disease of [place] coronary artery without angina pectoris (4) CKD (chronic kidney disease) Priority: Secondary Status: Chronic Qualifiers: Chronic kidney disease stage: unspecified stage Qualified Code(s): N18.9 - Chronic kidney disease, unspecified (5) Dependence on nocturnal oxygen therapy Priority: Secondary Status: Chronic (6) GERD (gastroesophageal reflux disease) Priority: Secondary Status: Chronic Qualifiers: Esophagitis presence: esophagitis presence not specified Qualified Code(s): K21.9 - Gastro-esophageal reflux disease without esophagitis (7) HTN (hypertension) Priority: Secondary Status: Chronic Qualifiers: Hypertension type: unspecified Qualified Code(s): I10 - Essential (primary) hypertension (8) History of CHF (congestive heart failure) Priority: Secondary Status: Chronic (9) History of CVA (cerebrovascular accident) Priority: Secondary Status: Chronic (10) History of esophageal varices Priority: Secondary Status: Chronic (11) History of peptic ulcer Priority: Secondary Status: Chronic (12) FITO (obstructive sleep apnea) Priority: Secondary Status: Chronic (13) Obesity Priority: Secondary Status: Chronic Qualifiers: Obesity type: unspecified obesity type Obesity classification: unspecified obesity classification Serious obesity comorbidity presence: unspecified whether serious comorbidity present Qualified Code(s): E66.9 - Obesity, unspecified (14) Osteoporosis Priority: Secondary Status: Chronic Qualifiers: Osteoporosis type: unspecified Presence of current pathological fracture: unspecified Qualified Code(s): M81.0 - Age-related osteoporosis without current pathological fracture (15) Acute blood loss anemia Priority: Primary Status: Acute - Hospital Course Hospital course: Ms. Gutiérrez is a 77 year old female POD#4 Right robotic-assisted Total knee replacement [arthritis] 10/05/18 Patient's hospital course complicated by postoperative anemia. Patient was p rogressed from intravenous analgesic needs to oral analgesic needs only. Remained neurovascularly intact and mobilized satisfactorily. All intraoperative and/or postoperative radiographic studies were satisfactory. Patient course and disposition discussed with Dr. Hartley. On day of discharge, patient was not seen by this author, seen by Dr. Hartley only. Patient was discharged to rehab with plan for rehabilitation and outpatient orthopedic follow up is arranged. - Time Spent with Patient Total time spent providing and/or coordinating discharge services: - Discharge Medications Prescriptions: New Aspirin Enteric Coated [Aspirin EC] 325 mg PO BID 10 Days #20 tablet. Docusate Sodium [Colace] 100 mg PO BID 5 Days #10 capsule OxyCODONE Immed Rel [Roxicodone 5 MG] 5 mg PO Q6HR PRN 5 Days #20 tablet PRN Reason: Severe Pain Discontinued Aspirin Enteric Coated [Aspirin EC] 81 mg PO DAILY No Action Multivitamin [Multi-Day Vitamins] 1 tab PO DAILY GlipiZIDE [Glucotrol] 5 mg PO BID Pantoprazole Sodium [Protonix] 40 mg PO BID Nitroglycerin [Nitrostat] 0.4 mg SL Q5M PRN PRN Reason: Chest Pain Simvastatin [Zocor] 40 mg PO HS Alendronate Sodium [Fosamax] 10 mg PO DAILY Cholecalciferol (D-3) [Vitamin D] 1,000 unit PO DAILY Sucralfate [Carafate] 1 gm PO TID Budesonide/Formoterol 80/4.5 [Symbicort 80/4.5] 2 puff IH DAILY ALPRAZolam [Xanax 1 MG Tablet] 1.5 mg PO HS Insulin Glargine,Hum.rec.anlog [Lantus Solostar] 60 unit SQ QPM Insulin LISPRO [Humalog Kwikpen U-100] 0 unit SQ TID Liraglutide [Victoza 2-Antonio] 1.2 mg PO DAILY SitaGLIPtin [Januvia] 100 mg PO DAILY Tramadol HCl [Ultram] 50 mg PO Q6H PRN PRN Reason: Pain Home Medications: Alendronate Sodium [Fosamax] 10 mg PO DAILY 11/03/16 [History] Cholecalciferol (D-3) [Vitamin D] 1,000 unit PO DAILY 11/03/16 [History] GlipiZIDE [Glucotrol] 5 mg PO BID 11/03/16 [History] Multivitamin [Multi-Day Vitamins] 1 tab PO DAILY 11/03/16 [History] Nitroglycerin [Nitrostat] 0.4 mg SL Q5M PRN 11/03/16 [History] Pantoprazole Sodium [Protonix] 40 mg PO BID 11/03/16 [History] Simvastatin [Zocor] 40 mg PO HS 11/03/16 [History] Sucralfate [Carafate] 1 gm PO TID 12/24/16 [History] Budesonide/Formoterol 80/4.5 [Symbicort 80/4.5] 2 puff IH DAILY 06/08/17 [History] ALPRAZolam [Xanax 1 MG Tablet] 1.5 mg PO HS 02/04/18 [History] Insulin Glargine,Hum.rec.anlog [Lantus Solostar] 60 unit SQ QPM 02/04/18 [History] Insulin LISPRO [Humalog Kwikpen U-100] 0 unit SQ TID 02/04/18 [History] Aspirin Enteric Coated [Aspirin EC] 325 mg PO BID 10 Days #20 tablet. 10/05/18 [Rx] Docusate Sodium [Colace] 100 mg PO BID 5 Days #10 capsule 10/05/18 [Rx] Liraglutide [Victoza 2-Antonio] 1.2 mg PO DAILY 10/05/18 [History] OxyCODONE Immed Rel [Roxicodone 5 MG] 5 mg PO Q6HR PRN 5 Days #20 tablet 10/05/18 [Rx] SitaGLIPtin [Januvia] 100 mg PO DAILY 10/05/18 [History] Tramadol HCl [Ultram] 50 mg PO Q6H PRN 10/05/18 [History] Allergies/Adverse Reactions: Allergy/AdvReac Type Severity Reaction Status Date / Time fluconazole [From Diflucan] Allergy Hives Verified 10/05/18 10:07 atenolol AdvReac Nausea Verified 10/05/18 10:07 codeine AdvReac Drowsy Verified 10/05/18 10:07 duloxetine [From Cymbalta] AdvReac Nausea Verified 10/05/18 10:07 fish oil AdvReac Nausea Verified 10/05/18 10:07 [place]-3 acid Ethyl Esters AdvReac Nausea Verified 10/05/18 10:07 [From [place]] omeprazole AdvReac Nausea Verified 10/05/18 10:07 Date of admission: 10/05/18 Primary care physician: Madeline Rondon Consults: 10/05/18 13:41 Consult to Nutrition [CONS] Routine Comment: Consulting Provider: NUTRITION Reason for Dietary Consult: Other Other:: Proper nutrition to facilitate wound healing Consult to Occupational Therapy [CONS] Routine Comment: Evaluate, develop and implement POC Reason for Consult: post knee surgery Does patient have active BEDREST order?: No Is patient medically & hemodynamically stable?: Yes Consult to Orthopedic Navigator [CONS] [CONS] Routine Consult to Physical Therapy [CONS] Routine Comment: Evaluate, develop and impliment POC Reason for Consult: post knee surgery Does patient have active BEDREST order?: No Is patient medically & hemodynamically stable?: Yes Consult to [place] [CONS] Routine Reason for SW Consult: post op joint replacement RT Post Op Consult [CONS] Routine Discharging clinician: Mac Hartley Anticipated date of discharge: 10/09/18 - VTE Documentation of Mechanical Device: Venous foot pump, device Labs on day of discharge: Labs from last 24 hours 10/05/18 10/05/18 09:02 01:00 Hgb 11.4 L Hct 36.4 POC Glucose 113 H - Impressions ITS Impressions Knee X-Ray 10/05/18 01:00 IMPRESSION: Unremarkable right total knee arthroplasty D/ / 10/05/2018 13:55:33 Neil Meadows MD / [facility] Interpreting Provider: Neil Meadows MD - Patient Status Disposition: Transfer Inpatient Rehab Fac Condition: Fair Functional capacity at discharge: uses cane/walker Overall status at discharge: patient is progressing back to baseline - Discharge Instructions Follow Up With: Madeline Rondon [Primary Care Provider] - - Diet and Activity Activity: as per physical therapy Diet: advance to your usual diet
[2018-10-05] MEDS: Ascorbic Acid 500 MG TABLET PO SCH (17:17)
[2018-10-05] MEDS: GlipiZIDE 5 MG TABLET PO SCH (17:18)
[2018-10-05] MEDS: Ondansetron 4 MG/2 ML VIAL IVP PRN (17:29)
[2018-10-05] MEDS: Insulin DETEMIR 100 UNIT/ML X5UNITS SQ SCH (18:24)
[2018-10-05] MEDS: traMADol 50 MG TABLET PO PRN (21:20)
[2018-10-05] MEDS: ALPRAZolam 1 MG TABLET PO SCH (21:21)
[2018-10-05] MEDS: (Pantoprazole Sodium [Protonix] 40 MG) PO SCH (21:22)
[2018-10-06 02:39] LABS: Hematocrit 27.5 % (35.3-44.9); Immature Granulocytes % 0.5 % (0-4); Lymphocytes % 10.3 %; Mean Corpuscular HGB Conc 32.4 g/dL (31.6-35.5); Mean Corpuscular Hemoglobin 30.3 pg (28.0-33.3); Mean Corpuscular Volume 93.5 fL (83.0-100.0); Mean Platelet Volume 12.5 fL (9.4-12.4); Monocytes # 0.5 K/mcL (0.0-1.3); Monocytes % 5.5 %; Neutrophils # 7.9 K/mcL (1.6-8.9); Platelet Count 104 K/mcL (140-400); Red Blood Count 2.94 M/mcL (3.82-4.97); Segmented Neutrophils % 83.7 %; White Blood Count 9.4 K/mcL (4.3-11.1)
[2018-10-06 02:49] LABS: Hemoglobin 8.9 g/dL (11.5-15.4)
[2018-10-06 02:51] LABS: Calcium 8.8 mg/dL (8.6-10.3); Potassium 4.9 mEq/L (3.5-5.1)
[2018-10-06] MEDS: traMADol 50 MG TABLET PO PRN ×3 (05:35→20:39)
[2018-10-06] MEDS: Multivit/Ca/Min/Fe/FA 1 TAB TABLET PO SCH (08:12)
[2018-10-06] MEDS: Ascorbic Acid 500 MG TABLET PO SCH ×2 (08:12→17:25)
[2018-10-06] MEDS: Sucralfate 1 GM TABLET PO SCH ×3 (08:12→20:34)
[2018-10-06] MEDS: Cholecalciferol (D-3) 1,000 UNIT (25MCG) TABLET PO SCH (08:13)
[2018-10-06] MEDS: Aspirin Enteric Coated 81 MG Tablet PO SCH (08:13)
[2018-10-06] MEDS: GlipiZIDE 5 MG TABLET PO SCH ×2 (08:13→17:25)
[2018-10-06] MEDS: Insulin LISPRO 300 UNITS/3 ML VIAL SQ SCH ×4 (08:13→20:34)
[2018-10-06] MEDS: (Pantoprazole Sodium [Protonix] 40 MG) PO SCH ×2 (08:17→20:57)
[2018-10-06] MEDS: (Liraglutide [Victoza 2-Pak] 1.2 MG) SQ SCH (08:17)
[2018-10-06] MEDS: Gabapentin 300 MG CAPSULE PO SCH ×3 (08:17→20:33)
[2018-10-06] MEDS: Budesonide/Formoterol 80/4.5 MDI IH SCH (08:19)
[2018-10-06] MEDS ORDERED: *HR* Enoxaparin 30 MG/0.3 ML SYRINGE SQ SCH (08:30)
[2018-10-06] MEDS ORDERED: NON-FORMULARY MEDICATION 1 EACH EACH (Multivitamin [Multi-Day Vitamins] 1 TAB) PO SCH (09:00)
[2018-10-06] MEDS ORDERED: NON-FORMULARY MEDICATION 1 EACH EACH (Alendronate Sodium [Fosamax] 10 MG) PO SCH (09:00)
[2018-10-06] MEDS ORDERED: *HR* SitaGLIPtin 100 MG TABLET PO SCH (09:00)
[2018-10-06] MEDS: *HR* SitaGLIPtin 25 MG TABLET PO SCH (11:25)
--- NOTE | 2018-10-06 12:17 | Orthopedics Progress Note ---
Date of Encounter: 10/06/18 Time of Encounter: 12:30 - Assessment and Plan (1) Status post total right knee replacement Current Visit: Yes Status: Acute (2) Arthritis of right knee Current Visit: Yes Status: Chronic (3) CAD (coronary artery disease) Current Visit: Yes Status: Chronic Qualifiers: Coronary Disease-Associated Artery/Lesion type: unspecified vessel or lesion type [place] vs. transplanted heart: unspecified whether [place] or transplanted heart Associated angina: angina presence unspecified Qualified Code(s): I25.10 - Atherosclerotic heart disease of [place] coronary artery without angina pectoris (4) CKD (chronic kidney disease) Current Visit: Yes Status: Chronic Qualifiers: Chronic kidney disease stage: unspecified stage Qualified Code(s): N18.9 - Chronic kidney disease, unspecified (5) Dependence on nocturnal oxygen therapy Current Visit: Yes Status: Chronic (6) GERD (gastroesophageal reflux disease) Current Visit: Yes Status: Chronic Qualifiers: Esophagitis presence: esophagitis presence not specified Qualified Code(s): K21.9 - Gastro-esophageal reflux disease without esophagitis (7) HTN (hypertension) Current Visit: Yes Status: Chronic Qualifiers: Hypertension type: unspecified Qualified Code(s): I10 - Essential (primary) hypertension (8) History of CHF (congestive heart failure) Current Visit: Yes Status: Chronic (9) History of CVA (cerebrovascular accident) Current Visit: Yes Status: Chronic (10) History of esophageal varices Current Visit: Yes Status: Chronic (11) History of peptic ulcer Current Visit: Yes Status: Chronic (12) FITO (obstructive sleep apnea) Current Visit: Yes Status: Chronic (13) Obesity Current Visit: Yes Status: Chronic Qualifiers: Obesity type: unspecified obesity type Obesity classification: unspecified obesity classification Serious obesity comorbidity presence: unspecified whether serious comorbidity present Qualified Code(s): E66.9 - Obesity, unspecified (14) Osteoporosis Current Visit: Yes Status: Chronic Qualifiers: Osteoporosis type: unspecified Presence of current pathological fracture: unspecified Qualified Code(s): M81.0 - Age-related osteoporosis without current pathological fracture (15) Acute blood loss anemia Current Visit: Yes Status: Acute Subjective Principal diagnosis: s/p R TKR Interval history: POD#1 Right robotic-assisted Total knee replacement [arthritis] 10/05/18 Patient seen at bedside. A&Ox3 Dressing and incision c/d/i No calf tenderness, erythema, or warmth. Neurovascularly intact b/l LE. Labwork, vitals, and medications reviewed. Decreased renal function. Pain control: Adequate Participating in therapy. All questions and concerns addressed. Educated on use of incentive spirometer, ambulation, and hydration. Patient educated on post-operative restrictions and care. Addressed: Continue to encourage PO fluid intake; avoid renally metabolized medications. Will continue to monitor closely. Patient course and disposition discussed with Dr. Hartley D/C plan: ECF - awaiting acceptance. Objective Vital signs: Vital Signs Temp Pulse Resp BP Pulse Ox 10/06/18 10:55 97.6 F 88 15 120/74 94 10/06/18 08:19 18 98 10/06/18 06:43 97.7 F 76 17 119/74 98 10/06/18 03:40 97.7 F 71 17 118/87 96 10/05/18 22:15 97.0 F L 70 15 116/75 92 10/05/18 19:04 98.0 F 74 15 121/80 93 10/05/18 17:10 97.4 F L 79 13 107/70 96 10/05/18 16:03 97.4 F L 71 12 103/71 96 10/05/18 14:59 97.0 F L 76 12 104/63 94 10/05/18 14:25 97.0 F L 75 12 100/67 94 10/05/18 13:50 97.0 F L 74 12 108/70 94 10/05/18 13:37 97.6 F 75 14 112/73 94 10/05/18 13:30 75 14 120/63 94 10/05/18 13:15 97.3 F L 75 14 136/81 94 10/05/18 13:00 74 14 117/70 95 10/05/18 12:45 74 14 121/73 96 10/05/18 12:30 97.6 F 73 12 127/66 96 Intake and Output 10/05/18 10/06/18 10/06/18 23:59 07:59 15:59 Intake Total 100 / 120 360 / 360 Balance 100 / -80 360 / 360 Intake: IV Fluids 100 / 120 Ancef 2,000 MG In 0.9 % Sodium 100 / 100 Chloride 100 ML @ 200 mls/hr IVPB Q8HR [place] Rx#:[id number] Oral 360 / 360 Other: Meal Breakfast Percent of Meal Consumed 100% # Voids 1 1 Weight 88.5 kg Blood Glucose* 267 180 222 Patient Weight 10/06/18 23:59 Weight 88.5 kg - Labs CBC & BMP: 10/08/18 06:53 10/08/18 06:53 Labs: Abnormal lab results RBC 2.94 M/mcL (3.82-4.97) L 10/06/18 01:59 Hgb 8.9 g/dL (11.5-15.4) L D 10/06/18 01:59 Hct 27.5 % (35.3-44.9) L 10/06/18 01:59 Plt Count 104 K/mcL (140-400) L 10/06/18 01:59 MPV 12.5 fL (9.4-12.4) H 10/06/18 01:59 Sodium 132 mEq/L (136-145) L 10/06/18 01:59 BUN 26 mg/dL (8-23) H 10/06/18 01:59 Creatinine 1.56 mg/dL (0.60-1.20) H 10/06/18 01:59 Est GFR ( Amer) 39 (> 60) L 10/06/18 01:59 Est GFR (Non-Af Amer) 32 (> 60) L 10/06/18 01:59 Glucose 224 mg/dL (70-105) H 10/06/18 01:59 POC Glucose 222 mg/dL (70-99) H 10/06/18 11:12 - VTE Documentation of Mechanical Device: Venous foot pump, device Consult Discharge Plan - Plan Referrals: Madeline Rondon [Primary Care Provider] -
--- NOTE | 2018-10-06 12:18 | Physician Discharge Referral ---
ExtendedCare Referral Info Transfer To: [facility] Provider in Charge: Dr. Mac Hartley - Diagnosis (1) Arthritis of right knee Priority: Primary Status: Chronic (2) Status post total right knee replacement Priority: Primary Status: Acute (3) FITO (obstructive sleep apnea) Priority: Secondary Status: Chronic (4) History of CVA (cerebrovascular accident) Priority: Secondary Status: Chronic (5) HTN (hypertension) Priority: Secondary Status: Chronic (6) CAD (coronary artery disease) Priority: Secondary Status: Chronic (7) CKD (chronic kidney disease) Priority: Secondary Status: Chronic (8) Dependence on nocturnal oxygen therapy Priority: Secondary Status: Chronic (9) History of CHF (congestive heart failure) Priority: Secondary Status: Chronic (10) Osteoporosis Priority: Secondary Status: Chronic (11) GERD (gastroesophageal reflux disease) Priority: Secondary Status: Chronic (12) History of peptic ulcer Priority: Secondary Status: Chronic (13) History of esophageal varices Priority: Secondary Status: Chronic (14) Obesity Priority: Secondary Status: Chronic (15) COPD (chronic obstructive pulmonary disease) Priority: Secondary Status: Chronic (16) Diabetes Priority: Secondary Status: Chronic Expected Duration of Placement: less than 30 days Prognosis: Good Aware of Diagnosis: Patient Aware of Prognosis: Patient - Transfer Medications Home Medications: Alendronate Sodium [Fosamax] 10 mg PO DAILY 11/03/16 [History] Cholecalciferol (D-3) [Vitamin D] 1,000 unit PO DAILY 11/03/16 [History] GlipiZIDE [Glucotrol] 5 mg PO BID 11/03/16 [History] Multivitamin [Multi-Day Vitamins] 1 tab PO DAILY 11/03/16 [History] Nitroglycerin [Nitrostat] 0.4 mg SL Q5M PRN 11/03/16 [History] Pantoprazole Sodium [Protonix] 40 mg PO BID 11/03/16 [History] Simvastatin [Zocor] 40 mg PO HS 11/03/16 [History] Sucralfate [Carafate] 1 gm PO TID 12/24/16 [History] Budesonide/Formoterol 80/4.5 [Symbicort 80/4.5] 2 puff IH DAILY 06/08/17 [History] ALPRAZolam [Xanax 1 MG Tablet] 1.5 mg PO HS 02/04/18 [History] Insulin Glargine,Hum.rec.anlog [Lantus Solostar] 60 unit SQ QPM 02/04/18 [History] Insulin LISPRO [Humalog Kwikpen U-100] 0 unit SQ TID 02/04/18 [History] Aspirin Enteric Coated [Aspirin EC] 325 mg PO BID 10 Days #20 tablet. 10/05/18 [Rx] Docusate Sodium [Colace] 100 mg PO BID 5 Days #10 capsule 10/05/18 [Rx] Liraglutide [Victoza 2-Antonio] 1.2 mg PO DAILY 10/05/18 [History] OxyCODONE Immed Rel [Roxicodone 5 MG] 5 mg PO Q6HR PRN 5 Days #20 tablet 09/13 07/01 [Rx] SitaGLIPtin [Januvia] 100 mg PO DAILY 10/05/18 [History] Tramadol HCl [Ultram] 50 mg PO Q6H PRN 10/05/18 [History] Allergies/Adverse Reactions: Allergy/AdvReac Type Severity Reaction Status Date / Time fluconazole [From Diflucan] Allergy Hives Verified 10/05/18 10:07 atenolol AdvReac Nausea Verified 10/05/18 10:07 codeine AdvReac Drowsy Verified 10/05/18 10:07 duloxetine [From Cymbalta] AdvReac Nausea Verified 10/05/18 10:07 fish oil AdvReac Nausea Verified 10/05/18 10:07 [place]-3 acid Ethyl Esters AdvReac Nausea Verified 10/05/18 10:07 [From [place]] omeprazole AdvReac Nausea Verified 10/05/18 10:07 - Respiratory Orders Smoking Cessation: Smoking cessation has been advised. For more information, call the [place] Tobacco Quit Line at 2-400-UORA-NOW. - Ancillary Orders May use pressure relief devices daily prn, May go on HALLE w/family/respon constitution party w/meds at nurse discretion PRN, May consult with Dentist, Horologist, Electric Needle Specialist PRN - Mobility Orders Chair, Ambulate - Rehabiliation Orders Rehab Potential: Good Rehab Orders: Evaluation for Physical Therapy, Evaluation for Occupational Therapy Other: Total Knee replacement Precautions x 6 weeks Apply cold therapy wrap 3-6x/day for 20 minutes at a time. Encourage ambulation throughout the day and incentive spirometer 10x/hour. Elevate affected extremity above heart as tolerated. Brace: Wear knee immobilizer at night x 2 weeks. - Treatments Skin tear care topically daily PRN per policy List/Other: Opsite placed. Keep dressing intact until first follow up appointment. If greater than 50% saturated, notify office, remove dressing and place appropriate dressing back in place. Leave Zipline intact. Opsite dressing is water resistant, not water-proof. OK to shower, but do not get dressing wet. - Diet Orders Regular CERTIFICATION: I certify that the transfer of the above named patient to an Extended Care Facility is necessary for the continuing treatment of the diagnosis listed. The above information is true and accurate reflection of patient's current condition. Confidential - Redisclosure prohibited without a patient's written consent.
[2018-10-06] MEDS ORDERED: Acetaminophen IV 1,000 MG/100 ML INFUS..BTL IVPB ONE (12:23)
[2018-10-06] MEDS: Insulin DETEMIR 100 UNIT/ML X5UNITS SQ SCH (17:25)
[2018-10-06] MEDS: ALPRAZolam 1 MG TABLET PO SCH (20:34)
[2018-10-07] MEDS: HYDROcodone BIT/Homatropine 5 MG TABLET PO PRN ×2 (05:06→14:17)
[2018-10-07 05:15] LABS: Basophils % 0.1 %; Eosinophils % 0.2 %; Hematocrit 24.7 % (35.3-44.9); Hemoglobin 7.8 g/dL (11.5-15.4); Immature Granulocytes % 1.1 % (0-4); Lymphocytes # 1.8 K/mcL (0.6-4.6); Lymphocytes % 15.7 %; Mean Corpuscular HGB Conc 31.6 g/dL (31.6-35.5); Mean Corpuscular Hemoglobin 30.5 pg (28.0-33.3); Mean Corpuscular Volume 96.5 fL (83.0-100.0); Mean Platelet Volume 12.3 fL (9.4-12.4); Monocytes # 1.1 K/mcL (0.0-1.3); Monocytes % 9.3 %; Neutrophils # 8.4 K/mcL (1.6-8.9); Platelet Count 105 K/mcL (140-400); Red Blood Count 2.56 M/mcL (3.82-4.97); Red Cell Distribution Width 12.5 % (11.5-14.5); Segmented Neutrophils % 73.6 %; White Blood Count 11.4 K/mcL (4.3-11.1)
[2018-10-07 05:35] LABS: Calcium 8.8 mg/dL (8.6-10.3)
[2018-10-07] MEDS: *HR* Enoxaparin 30 MG/0.3 ML SYRINGE SQ SCH ×2 (05:48→09:01)
--- NOTE | 2018-10-07 06:26 | Orthopedics Progress Note ---
Date of Encounter: 10/07/18 Time of Encounter: 06:25 - Assessment and Plan (1) Acute blood loss anemia Current Visit: Yes Status: Acute Subjective Interval history: Patient was seen this morning doing well without complaints. Afebrile vital signs stable. Operative extremity: Neurovascularly intact Dressing clean dry and intact Calves nontender Assessment and plan: Continue with postoperative care Hemoglobin 7.8 Objective Vital signs: Vital Signs Temp Pulse Resp BP Pulse Ox 10/06/18 22:48 97.8 F 86 15 138/79 93 10/06/18 20:45 93 10/06/18 18:41 97.5 F L 85 15 154/75 94 10/06/18 15:55 97.6 F 86 17 138/60 92 10/06/18 10:55 97.6 F 88 15 120/74 94 10/06/18 08:19 18 98 10/06/18 06:43 97.7 F 76 17 119/74 98 Intake and Output 10/06/18 10/06/18 10/07/18 15:59 23:59 07:59 Intake Total 460 / 460 Balance 460 / 460 Intake: IV Fluids 100 / 100 [place] 1,000 mg/100 ml 1,000 100 / 100 mg In 100 ml @ 400 mls/hr IVPB ONCE ONE Rx#:[id number] Oral 360 / 360 Other: Meal Breakfast Percent of Meal Consumed 100% # Voids 1 1 Weight 88.7 kg Blood Glucose* 222 219 Patient Weight 10/07/18 23:59 Weight 88.7 kg - Labs CBC & BMP: 10/07/18 04:39 10/07/18 04:39 Labs: Abnormal lab results WBC 11.4 K/mcL (4.3-11.1) H 10/07/18 04:39 RBC 2.56 M/mcL (3.82-4.97) L 10/07/18 04:39 Hgb 7.8 g/dL (11.5-15.4) L 10/07/18 04:39 Hct 24.7 % (35.3-44.9) L 10/07/18 04:39 Plt Count 105 K/mcL (140-400) L 10/07/18 04:39 MPV 12.5 fL (9.4-12.4) H 10/06/18 01:59 Sodium 132 mEq/L (136-145) L 10/07/18 04:39 BUN 27 mg/dL (8-23) H 10/07/18 04:39 Creatinine 1.27 mg/dL (0.60-1.20) H 10/07/18 04:39 Est GFR ( Amer) 49 (> 60) L 10/07/18 04:39 Est GFR (Non-Af Amer) 41 (> 60) L 10/07/18 04:39 Glucose 215 mg/dL (70-105) H 10/07/18 04:39 POC Glucose 219 mg/dL (70-99) H 10/06/18 19:39 - VTE Documentation of Mechanical Device: Venous foot pump, device Consult Discharge Plan - Plan Referrals: Madeline Rondon [Primary Care Provider] -
[2018-10-07] MEDS: Budesonide/Formoterol 80/4.5 MDI IH SCH (07:25)
[2018-10-07] MEDS: Sucralfate 1 GM TABLET PO SCH ×3 (09:00→20:51)
[2018-10-07] MEDS: Gabapentin 300 MG CAPSULE PO SCH ×3 (09:00→20:51)
[2018-10-07] MEDS: *HR* SitaGLIPtin 25 MG TABLET PO SCH (09:00)
[2018-10-07] MEDS: Cholecalciferol (D-3) 1,000 UNIT (25MCG) TABLET PO SCH (09:00)
[2018-10-07] MEDS: Aspirin Enteric Coated 81 MG Tablet PO SCH (09:00)
[2018-10-07] MEDS: Multivit/Ca/Min/Fe/FA 1 TAB TABLET PO SCH (09:00)
[2018-10-07] MEDS: GlipiZIDE 5 MG TABLET PO SCH ×2 (09:00→17:25)
[2018-10-07] MEDS: Ascorbic Acid 500 MG TABLET PO SCH ×2 (09:00→17:25)
[2018-10-07] MEDS ORDERED: *HR* Enoxaparin 30 MG/0.3 ML SYRINGE SQ SCH (09:00)
[2018-10-07] MEDS: Insulin LISPRO 300 UNITS/3 ML VIAL SQ SCH ×4 (09:01→20:51)
[2018-10-07] MEDS: (Liraglutide [Victoza 2-Pak] 1.2 MG) SQ SCH (09:58)
[2018-10-07] MEDS: (Pantoprazole Sodium [Protonix] 40 MG) PO SCH (09:58)
[2018-10-07] MEDS: Ondansetron 4 MG/2 ML VIAL IVP PRN (10:08)
--- NOTE | 2018-10-07 12:05 | Event Note ---
Date of Encounter: 10/07/18 Time of Encounter: 12:00 POD#2 Right robotic-assisted Total knee replacement [arthritis] 10/05/18 Patient seen at bedside. Patient sleeping, easily awoken. Patient's neighbor at bedside. Gives permission to speak about her health care in front of her visitor. A&Ox3 Dressing and incision c/d/i No calf tenderness, erythema, or warmth. Neurovascularly intact b/l LE. Labwork, vitals, and medications reviewed. Pain control: Adequate Participating in therapy. All questions and concerns addressed. Educated on use of incentive spirometer, ambulation, and hydration. Patient educated on post-operative restrictions and care. Addressed: Labwork improved - continues anemic; not presently symptomatic. Continue to encourage PO fluid intake. Patient course and disposition discussed with Dr. Hartley D/C plan: ECF - awaiting auth
[2018-10-07] MEDS: Pantoprazole 40 MG VIAL IVP SCH (17:25)
[2018-10-07] MEDS: Insulin DETEMIR 100 UNIT/ML X5UNITS SQ SCH (18:04)
[2018-10-07] MEDS: ALPRAZolam 1 MG TABLET PO SCH (20:51)
[2018-10-08] MEDS: Pantoprazole 40 MG VIAL IVP SCH ×2 (05:43→16:48)
[2018-10-08] MEDS: HYDROcodone BIT/Homatropine 5 MG TABLET PO PRN ×2 (06:02→12:14)
--- NOTE | 2018-10-08 06:33 | Orthopedics Progress Note ---
Date of Encounter: 10/08/18 Time of Encounter: 06:32 - Assessment and Plan (1) Acute blood loss anemia Current Visit: Yes Status: Acute Subjective Interval history: Patient was seen this morning doing well without complaints. Afebrile vital signs stable. Operative extremity: Neurovascularly intact Dressing clean dry and intact Calves nontender Assessment and plan: Continue with postoperative care Plan for discharge tomorrow Objective Vital signs: Vital Signs Temp Pulse Resp BP Pulse Ox 10/08/18 00:15 99.5 F 95 17 137/75 95 10/07/18 21:00 95 10/07/18 19:49 99.1 F 102 17 106/46 95 10/07/18 16:32 98.2 F 109 18 165/71 91 10/07/18 11:47 99.5 F 103 16 119/67 95 10/07/18 07:41 99.7 F H 99 16 121/67 92 10/07/18 07:26 15 93 Intake and Output 10/07/18 10/07/18 10/08/18 15:59 23:59 07:59 Intake Total 480 / 480 Output Total 350 / 500 150 / 500 1200 / 1200 Balance 130 / -20 -150 / -20 -1200 / -1200 Intake: Oral 480 / 480 Output: Urine 350 / 500 150 / 500 1200 / 1200 Other: Meal Lunch Percent of Meal Consumed 50% # Voids 1 Weight 89.8 kg Blood Glucose* 276 276 Patient Weight 10/08/18 23:59 Weight 89.8 kg - Labs CBC & BMP: 10/07/18 04:39 10/07/18 04:39 Labs: Abnormal lab results WBC 11.4 K/mcL (4.3-11.1) H 10/07/18 04:39 RBC 2.56 M/mcL (3.82-4.97) L 10/07/18 04:39 Hgb 7.8 g/dL (11.5-15.4) L 10/07/18 04:39 Hct 24.7 % (35.3-44.9) L 10/07/18 04:39 Plt Count 105 K/mcL (140-400) L 10/07/18 04:39 MPV 12.5 fL (9.4-12.4) H 10/06/18 01:59 Sodium 132 mEq/L (136-145) L 10/07/18 04:39 BUN 27 mg/dL (8-23) H 10/07/18 04:39 Creatinine 1.27 mg/dL (0.60-1.20) H 10/07/18 04:39 Est GFR ( Amer) 49 (> 60) L 10/07/18 04:39 Est GFR (Non-Af Amer) 41 (> 60) L 10/07/18 04:39 Glucose 215 mg/dL (70-105) H 10/07/18 04:39 POC Glucose 321 mg/dL (70-99) H 10/07/18 16:38 - VTE Documentation of Mechanical Device: Venous foot pump, device Consult Discharge Plan - Plan Referrals: Madeline Rondon [Primary Care Provider] -
[2018-10-08 07:12] LABS: Basophils % 0.1 %; Eosinophils # 0.1 K/mcL (0.0-0.6); Eosinophils % 0.5 %; Hematocrit 22.7 % (35.3-44.9); Hemoglobin 7.2 g/dL (11.5-15.4); Lymphocytes # 2.2 K/mcL (0.6-4.6); Lymphocytes % 17.7 %; Mean Corpuscular HGB Conc 31.7 g/dL (31.6-35.5); Mean Corpuscular Hemoglobin 29.9 pg (28.0-33.3); Mean Corpuscular Volume 94.2 fL (83.0-100.0); Mean Platelet Volume 11.6 fL (9.4-12.4); Monocytes # 1.1 K/mcL (0.0-1.3); Monocytes % 8.9 %; Neutrophils # 8.8 K/mcL (1.6-8.9); Platelet Count 120 K/mcL (140-400); Red Blood Count 2.41 M/mcL (3.82-4.97); Red Cell Distribution Width 12.6 % (11.5-14.5); Segmented Neutrophils % 71.8 %; White Blood Count 12.3 K/mcL (4.3-11.1)
[2018-10-08 07:32] LABS: Calcium 9.3 mg/dL (8.6-10.3); Potassium 4.8 mEq/L (3.5-5.1)
[2018-10-08] MEDS: Budesonide/Formoterol 80/4.5 MDI IH SCH (07:34)
[2018-10-08] MEDS: traMADol 50 MG TABLET PO PRN (08:42)
[2018-10-08] MEDS: Multivit/Ca/Min/Fe/FA 1 TAB TABLET PO SCH (08:43)
[2018-10-08] MEDS: Sucralfate 1 GM TABLET PO SCH ×3 (08:43→20:57)
[2018-10-08] MEDS: GlipiZIDE 5 MG TABLET PO SCH ×2 (08:43→16:48)
[2018-10-08] MEDS: Cholecalciferol (D-3) 1,000 UNIT (25MCG) TABLET PO SCH (08:43)
[2018-10-08] MEDS: Aspirin Enteric Coated 81 MG Tablet PO SCH (08:43)
[2018-10-08] MEDS: Ascorbic Acid 500 MG TABLET PO SCH ×2 (08:43→16:48)
[2018-10-08] MEDS: *HR* Enoxaparin 30 MG/0.3 ML SYRINGE SQ SCH (08:43)
[2018-10-08] MEDS: Gabapentin 300 MG CAPSULE PO SCH ×3 (08:43→20:57)
[2018-10-08] MEDS: *HR* SitaGLIPtin 25 MG TABLET PO SCH (08:43)
[2018-10-08] MEDS: Insulin LISPRO 300 UNITS/3 ML VIAL SQ SCH ×4 (08:44→20:59)
[2018-10-08] MEDS: Ringers Solution, Lactated 1,000 ML IVC SCH ×6 (08:45→12:20)
[2018-10-08] MEDS: *HR* OxyCODONE Immed Rel 5 MG TABLET PO PRN ×2 (16:46→20:55)
[2018-10-08] MEDS: Insulin DETEMIR 100 UNIT/ML X5UNITS SQ SCH (16:48)
[2018-10-08] MEDS: ALPRAZolam 1 MG TABLET PO SCH (20:56)
[2018-10-09] MEDS: Pantoprazole 40 MG VIAL IVP SCH ×2 (05:21→17:46)
--- NOTE | 2018-10-09 07:28 | Orthopedics Progress Note ---
Date of Encounter: 10/09/18 Time of Encounter: 07:28 - Assessment and Plan (1) Acute blood loss anemia Current Visit: Yes Status: Acute Subjective Principal diagnosis: s/p R TKR Interval history: Patient was seen this morning doing well without complaints. Afebrile vital signs stable. Operative extremity: Neurovascularly intact Dressing clean dry and intact Calves nontender Assessment and plan: Continue with postoperative care hb 7.2 transfuse 2 units, possible discharge later today Objective Vital signs: Vital Signs Temp Pulse Pulse Resp BP Pulse Ox 10/09/18 06:18 98.3 F 98 17 118/54 98 10/09/18 00:29 98.5 F 87 16 147/77 96 10/08/18 20:55 87 92 10/08/18 20:50 99.2 F 97 18 102/60 92 10/08/18 14:11 98.7 F 86 18 129/83 96 10/08/18 11:00 98.9 F 83 16 122/86 95 10/08/18 07:36 17 95 Intake and Output 10/08/18 10/08/18 10/09/18 15:59 23:59 07:59 Intake Total 480 / 480 Output Total 300 / 1500 Balance 480 / -1020 -300 / -1020 Intake: Oral 480 / 480 Output: Urine 300 / 1500 Other: Meal Lunch Percent of Meal Consumed 60% # Voids 1 1 Weight 90 kg Blood Glucose* 271 212 Patient Weight 10/09/18 23:59 Weight 90 kg - Labs CBC & BMP: 10/08/18 06:53 10/08/18 06:53 Labs: Abnormal lab results WBC 12.3 K/mcL (4.3-11.1) H 10/08/18 06:53 RBC 2.41 M/mcL (3.82-4.97) L 10/08/18 06:53 Hgb 7.2 g/dL (11.5-15.4) L 10/08/18 06:53 Hct 22.7 % (35.3-44.9) L 10/08/18 06:53 Plt Count 120 K/mcL (140-400) L 10/08/18 06:53 MPV 12.5 fL (9.4-12.4) H 10/06/18 01:59 Sodium 132 mEq/L (136-145) L 10/07/18 04:39 BUN 27 mg/dL (8-23) H 10/07/18 04:39 Creatinine 1.27 mg/dL (0.60-1.20) H 10/07/18 04:39 Est GFR ( Amer) 55 (> 60) L 10/08/18 06:53 Est GFR (Non-Af Amer) 46 (> 60) L 10/08/18 06:53 Glucose 131 mg/dL (70-105) H 10/08/18 06:53 POC Glucose 212 mg/dL (70-99) H 10/08/18 20:53 - VTE Documentation of Mechanical Device: Venous foot pump, device Consult Discharge Plan - Plan Referrals: Madeline Rondon [Primary Care Provider] -
[2018-10-09] MEDS ORDERED: Furosemide 20 MG/2 ML VIAL IVP PRN (07:49)
[2018-10-09] MEDS ORDERED: 0.9 % Sodium Chloride 250 ML IVC SCH (08:00)
[2018-10-09] MEDS: Budesonide/Formoterol 80/4.5 MDI IH SCH (08:01)
[2018-10-09] MEDS: Gabapentin 300 MG CAPSULE PO SCH ×3 (10:00→20:16)
[2018-10-09] MEDS: Ascorbic Acid 500 MG TABLET PO SCH ×2 (10:00→17:13)
[2018-10-09] MEDS: *HR* SitaGLIPtin 25 MG TABLET PO SCH (10:00)
[2018-10-09] MEDS: Aspirin Enteric Coated 81 MG Tablet PO SCH (10:00)
[2018-10-09] MEDS: Multivit/Ca/Min/Fe/FA 1 TAB TABLET PO SCH (10:00)
[2018-10-09] MEDS: Cholecalciferol (D-3) 1,000 UNIT (25MCG) TABLET PO SCH (10:00)
[2018-10-09] MEDS: *HR* Enoxaparin 30 MG/0.3 ML SYRINGE SQ SCH (10:00)
[2018-10-09] MEDS: GlipiZIDE 5 MG TABLET PO SCH ×2 (10:00→17:13)
[2018-10-09] MEDS: Sucralfate 1 GM TABLET PO SCH ×3 (10:00→20:16)
[2018-10-09] MEDS: Insulin LISPRO 300 UNITS/3 ML VIAL SQ SCH ×4 (10:01→21:51)
[2018-10-09] MEDS: *HR* OxyCODONE Immed Rel 5 MG TABLET PO PRN (12:57)
[2018-10-09] MEDS ORDERED: *HR* OxyCODONE Immed Rel 5 MG TABLET PO PRN (13:25)
[2018-10-09] MEDS ORDERED: 0.9 % Sodium Chloride 250 ML ONE (14:04)
[2018-10-09] MEDS: Acetaminophen IV 1,000 MG/100 ML INFUS..BTL IVPB SCH ×2 (14:12→17:44)
[2018-10-09] MEDS: Insulin DETEMIR 100 UNIT/ML X5UNITS SQ SCH (17:46)
[2018-10-09 20:00] LABS: Hemoglobin 9.8 g/dL (11.5-15.4)
[2018-10-09] MEDS: traMADol 50 MG TABLET PO PRN (20:15)
[2018-10-09] MEDS: ALPRAZolam 1 MG TABLET PO SCH (20:15)
[2018-10-09 21:36] VITALS: BP 115/61
== END 2018-10-09 22:30 | DRG 470 ==
LOC: SAMDAY 08:41 → 3NENU 13:44
PROVIDERS: ADMIT Orthopaedic Surgery; ATTEND Orthopaedic Surgery